=== PATIENT | female | born 1940 | race Caucasian/White ===

== ENCOUNTER → 2018-02-05 11:12 | Outpatient (CLI) | payer MEDICARE, OTHER ==
[~2018-02-05 11:12] MED LIST: CARDURA2 MG PO; CELEXA10 MG PO; HCTZ25 MG PO; KLOR-CON M2020 MEQ PO; LASIX40 MG PO; MIRAPEX1 MG PO; MOBIC7.5 MG PO; OMEPRAZOLE20 M1 PO; PREMARIN45 GM VG; TENORMIN50 MG PO
== END | disposition home or self-care (01) ==
LOC: D.US 11:12
DX: R60.0 Localized edema (principal)

== ENCOUNTER 2018-02-08 21:26 | Emergency (ER) | payer MEDICARE, OTHER ==
[~2018-02-08] VITALS: Ht 170.2 cm; Wt 72.7 kg
[2018-02-08 21:29] VITALS: Ht 170.2 cm; Wt 72.7 kg
[2018-02-08] MEDS ORDERED: CELEXA10 MG PO (23:30)
[2018-02-08] MEDS ORDERED: TENORMIN50 MG PO (23:32)
[2018-02-08] MEDS ORDERED: OMEPRAZOLE20 M1 PO (23:32)
[2018-02-08] MEDS ORDERED: HCTZ25 MG PO (23:33)
[2018-02-08] MEDS ORDERED: KLOR-CON M2020 MEQ PO (23:34)
[2018-02-08] MEDS ORDERED: LASIX40 MG PO (23:35)
[2018-02-08] MEDS ORDERED: MOBIC7.5 MG PO (23:35)
[2018-02-09 01:20] VITALS: BP 118/53
[2018-04-03 17:24] VITALS: Ht 170.2 cm; Wt 72.7 kg
== END 2018-02-09 01:22 | disposition home or self-care (01) ==
LOC: D.ER 21:26
DX: S09.90XA Unspecified injury of head, initial encounter (principal); W19.XXXA Unspecified fall, initial encounter; Y93.89 Activity, other specified; Y92.019 Unspecified place in single-family (private) house as the place of occurrence of the external cause; I10 Essential (primary) hypertension

== ENCOUNTER 2018-02-24 18:24 | Inpatient (IN) | payer MEDICARE, OTHER ==
[~2018-02-24] VITALS: Ht 170.2 cm; Wt 74.5 kg
--- NOTE | ~2018-02-24 | EC ---
PATIENT:JOANIE ALMODOVAR DATE OF SERVICE: 02/24/18 SEX: F MEDICAL RECORD: [id number] DATE OF : 36 LOCATION:D.M2 D.213 AGE OF PATIENT: 78 ADMISSION DATE: 02/24/18 REFERRING PHYSICIAN: INTERPRETING PHYSICIAN: DAKOTA ALAN MD ECHOCARDIOGRAM REPORT ECHO CHARGES 4 ECHO COMPLETE Date: 02/25 CLINICAL DIAGNOSIS: EDEMA ECHOCARDIOGRAPHIC MEASUREMENTS (adult normal given) AC root (d.<3.7cm) 2.7 cm LV Septum d (<1.2 cm> 1.5 cm Valve Excursion 1.6 cm LV Septum (systole) 1.9 cm Left Atria (s.<4.0cm> 4.7 cm LVPW d(<1.2cm) 1.5 cm RV (d.<2.3cm) 2.6 cm LVPW (sytole) 2.0 cm LV diastole(<5.6CM) 5.3 cm MV E-F(>70mm/sec) cm LV systole 2.7 cm LVOT Diameter 2.1 cm MV exc.(>10mm) cm Est.ejection fraction (50-75%) % DOPPLER: LVIT cm/sec A 79.0 cm/sec E 90.0 cm/sec LA cm/sec RVSP 34.2 mmHg LVOT 102 cm/sec AOP1/2T m/s Asc. Ao 186 cm/sec RVOT 74.0 cm/sec RA cm/sec PA 127 cm/sec AV Gradient Peak 14.0 mmHg AV Mean 6.8 mmHg AV Area 2.1 cm MV Gradient Peak 5.4 mmHg MV Mean 1.9 mmHg MV Area cm COMMENTS: On Site Manager: Raheel FRAGOSOOE Circus Agent: 1 Dr. Alan TAPE# PACS Pericardial Effusion N DATE OF SERVICE: 02/26/2018 PROCEDURE: Echocardiogram FINDINGS: 1. Left ventricular chamber size is within normal limits. Left ventricular systolic function is normal. Overall ejection fraction estimated at 55%. 2. Left atrium is enlarged at 4.7 cm. Right atrium and right ventricle chamber sizes as well are within normal limits. 3. Valvular structures have normal structure and motion. ECHOCARDIOGRAM REPORT [id number] JOANIE ALMODOVAR 4. Doppler interrogation reveals moderate mitral regurgitation, mild tricuspid regurgitation, no other valvular insufficiency or stenosis and pulmonary systolic pressure is estimated 34 mmHg. 5. No evidence of pericardial effusion or left ventricular thrombus. TRANSINT:[id number] Voice Confirmation ID: [id number] DOCUMENT ID: [id number] DAKOTA ALAN MD at 1713 CC: [id number] DICTATION DATE: 02/26/18 1234 PRODUCT MANUFACTURING PROFESSIONAL: 02/26/18 1239 ADM IN [facility] [address] [id number]
--- NOTE | ~2018-02-24 | MORECARE ---
CASE MANAGEMENT DISCHARGE SUMMARY PATIENT: JOANIE ALMODOVAR UNIT: [id number] ADM DATE: 02/24/18 AGE: 78 : 38 SEX: F ROOM/BED: D.2137 AUTHOR: CASE, OPEN SOAPER TENDER PHYSICIAN: REFERRING PHYSICIAN: MAHENDRA CRUZ DO DATE OF SERVICE: 02/24/18 Discharge Plan Patient Name: JOANIE ALMODOVAR Facility: [facility] : 1940 Planned Disposition: Long-Term Facility Anticipated Discharge Date: 02/27/18 Discharge Date: Expected LOS: 3 Initial Reviewer: [email or web address] Initial Review Date: 02/26/2018 Generated: 02/26/18 6:39 pm DCPIA - Discharge Planning Initial Assessment Updated by [email or web address]: Sam Espinoza on 02/26/18 5:38 pm * Is the patient Alert and Oriented? Yes * How many steps to enterexit or inside your home? * PCP DR. RICO * Pharmacy [facility] * Preadmission Environment Home Alone * ADLs Independent * Equipment Cane Walker * Other Equipment NO MEDICAL EQUIPMENT PROVIDER PREFERENCE * List name and contact numbers for known caregivers / representatives who currently or will assist patient after discharge: DONNA ALMODOVAR, SON, EDEN PRADO, * Verbal permission to speak to the caregivers and representatives has been obtained from the patient. Yes * Community resources currently utilized None * Please name any agencies selected above. NONE * Additional services required to return to the preadmission environment? Yes * Can the patient safely return to the preadmission environment? Yes * Has this patient been hospitalized within the prior 30 days at any hospital? No External Providers External Provider: [facility] Next Contact Date: 02/27/2018 Service Request Date: Service Type: Resolution: Reviewer: Comments: Coverage Notice Reviewer: [email or web address] Karrie Espinoza Notice Issued Date-Time: 02/26/2018 14:17 Notice Type: IM Discharge Notice Notice Delivered To: Patient Relationship to Patient: Laboratory Animal Caretaker Name: Delivery Method: HAND - Hand Delivered Ysabel Days: Prior Verbal Notification: Recipient Understood Notice: Yes Recipient Signature: Yes Med Rec Note Co-signed by Attending: Coverage Notice Comment: Reviewer: [email or web address] Vargas [place] Notice Issued Date-Time: 02/26/2018 16:30 Notice Type: Patient Choice Letter Notice Delivered To: Family Member Relationship to Patient: Son Laboratory Animal Caretaker Name: DONNA ALMODOVAR Delivery Method: - Ysabel Days: Prior Verbal Notification: Recipient Understood Notice: Recipient Signature: Med Rec Note Co-signed by Attending: Coverage Notice Comment: Patient Name: JOANIE ALMODOVAR Page [phone] All edits/amendments must be made on the electronic document DICTATION DATE: 02/26/181737 TOP DYEING MACHINE LOADER: 02/26/181737 RPT#: [id number] DC DATE: STATUS: ADM IN [facility] [address] [place] [address] END OF REPORT
--- NOTE | ~2018-02-24 | OP ---
PATIENT NAME: JOANIE ALMODOVAR MEDICAL RECORD: [id number] :36 LOCATION:D.M2 D.2137 ADMISSION DATE:02/24/18 SURGEON: CHIKIS HUYNH MD DATE OF OPERATION: 03/04/2018 PREOPERATIVE DIAGNOSIS: Procidentia. POSTOPERATIVE DIAGNOSIS: Procidentia. PROCEDURE: 1. Exam under anesthesia. 2. Reduction of procidentia and placement of pessary. SURGEON: Chikis Huynh MD CYBER INCIDENT RESPONDER: Kay Ware. ANESTHESIA: Conscious sedation. FINDINGS: Complete procidentia of the uterus. The urethra was edematous and shows evidence of trauma. SPECIMEN: None. ESTIMATED BLOOD LOSS: None. FLUIDS: 250 cc of lactated Ringer's. URINE OUTPUT: Quantity sufficient. DRAINS: Caceres to gravity. INDICATIONS: The patient is an 78-year-old female seen on the floor for procidentia. Attempt was made to reduce prolapse in the bed and was too uncomfortable for the patient. The patient was consented for exam under anesthesia and any indicated procedure. DESCRIPTION OF PROCEDURE: After informed consent was assured, patient was taken to the operating room where anesthetic was obtained and she was placed in Yellofin stirrups. After positioning, the exposed vaginal mucosa and urethra was prepped. Once the patient has been draped, stitch bonder machine operator helper grasped the cervix anteriorly and posteriorly and gently applied pressure until the complete procidentia was reduced. A 2-1/2 inch Gellhorn is now placed and maintained integrity of the reduction. The sponge, lap, and needle counts correct on the table as the patient was awakened and sent to the recovery area. TRANSINT:[id number] Voice Confirmation ID: [id number] DOCUMENT ID: [id number] OPERATIVE REPORT [id number] JOANIE ALMODOVAR CHIKIS HUYNH MD at 1431 CC: [id number] DICTATION DATE: 03/04/18 0745 INSULATION WORKER FURNACE INSTALLER: 03/04/18 1118 ADM IN [place] [place] [address] [place] [address]
[~2018-02-24 18:24] MED LIST changes: -CARDURA2 MG PO; -MIRAPEX1 MG PO; -PREMARIN45 GM VG
[2018-02-24 18:55] LABS: BASOPHILS 0.5 % (0-2); HEMATOCRIT 34.7 % (36.0-48.0); HEMOGLOBIN 11.5 g/dL (12-16); IMMATURE GRANULOCYTES 0.3 % (0-5); MCH 32.4 pg (26.0-34.0); MCHC 33.1 g/dL (31.0-37.0); MCV 97.7 fL (80.0-100.0); MEAN PLATELET VOLUME 9.8 fL (7.4-10.4); MONOCYTES 14.2 % (2-11); PLATELET COUNT 107 10x3/uL (130-400); RBC 3.55 10x6/uL (4.00-5.40); RDW 15.7 % (11.5-14.5); WBC 3.7 10x3/uL (4.8-10.8)
[2018-02-24 19:08] LABS: ALBUMIN 2.9 g/dL (3.4-5.0); ALKALINE PHOSPHATASE 159 U/L (46-116); ALT (SGPT) 19 U/L (10-68); BILIRUBIN - TOTAL 1.31 mg/dL (0.2-1.3); CALC OSMOLALITY 274 mosm/kg (275-300); CALCIUM 8.8 mg/dL (8.5-10.1); CARBON DIOXIDE 29.7 mmol/L (21.0-32.0); CHLORIDE - SERUM 105 mmol/L (98-107); CREATININE - SERUM 0.6 mg/dL (0.6-1.3); GLUCOSE 86 mg/dL (74-106); POTASSIUM - SERUM 3.2 mmol/L (3.5-5.1); PROTEIN - SERUM 7.4 g/dL (6.4-8.2); SODIUM 138 mmol/L (136-145); UREA NITROGEN 12 mg/dL (7-18); eGFR NON AFRICAN AMERICAN > 90 mL/min (90-120)
[2018-02-24 19:17] LABS: PRO BNP 603 pg/mL (0-450)
[2018-02-24 19:20] LABS: TROPONIN-I < 0.017 ng/mL (0.000-0.060)
[2018-02-25] VITALS (8 sets, daily range): BP systolic 103–162; BP diastolic 35–73; Ht 170.2 cm; Wt 74.5 kg
[2018-02-25 04:43] LABS: ALBUMIN 2.6 g/dL (3.4-5.0); ALKALINE PHOSPHATASE 150 U/L (46-116); ALT (SGPT) 19 U/L (10-68); BILIRUBIN - TOTAL 1.34 mg/dL (0.2-1.3); CALC OSMOLALITY 275 mosm/kg (275-300); CALCIUM 8.7 mg/dL (8.5-10.1); CARBON DIOXIDE 28.9 mmol/L (21.0-32.0); CHLORIDE - SERUM 104 mmol/L (98-107); CREATININE - SERUM 0.6 mg/dL (0.6-1.3); GLUCOSE 87 mg/dL (74-106); POTASSIUM - SERUM 3.3 mmol/L (3.5-5.1); PROTEIN - SERUM 6.8 g/dL (6.4-8.2); SODIUM 139 mmol/L (136-145); UREA NITROGEN 11 mg/dL (7-18); eGFR NON AFRICAN AMERICAN > 90 mL/min (90-120)
[2018-02-25 05:02] LABS: BASOPHILS 0.5 % (0-2); EOSINOPHILS 1.9 % (0-7); HEMATOCRIT 33.9 % (36.0-48.0); HEMOGLOBIN 11.3 g/dL (12-16); IMMATURE GRANULOCYTES 0.3 % (0-5); LYMPHOCYTES 15.6 % (15-50); MCH 32.3 pg (26.0-34.0); MCHC 33.3 g/dL (31.0-37.0); MCV 96.9 fL (80.0-100.0); MONOCYTES 15.6 % (2-11); NEUTROPHILS 66.1 % (40-80); PLATELET COUNT 104 10x3/uL (130-400); RDW 15.5 % (11.5-14.5); WBC 3.7 10x3/uL (4.8-10.8)
[2018-02-25 10:54] LABS: APPEARANCE SL CLDY (CLEAR); COLOR YELLOW (YELLOW); GLUCOSE NEGATIVE (NEGATIVE); NITRITE NEGATIVE (NEGATIVE); PROTEIN TRACE mg/dL (NEGATIVE); SPECIFIC GRAVITY 1.005 (1.005-1.020)
[2018-02-25 10:55] LABS: BACTERIA MODERATE /hpf (NONE SEEN); BILIRUBIN NEGATIVE (NEGATIVE); EPITHELIAL CELLS 0-5 /hpf (0-5); KETONE MODERATE mg/dL (NEGATIVE); WHITE CELLS - URINE 25-50 /hpf (0-5)
[2018-02-25 10:56] LABS: MUCUS <1+ /lpf (NONE SEEN)
[2018-02-26 04:18] LABS: BASOPHILS 0.7 % (0-2); EOSINOPHILS 3.7 % (0-7); HEMATOCRIT 33.1 % (36.0-48.0); HEMOGLOBIN 10.9 g/dL (12-16); IMMATURE GRANULOCYTES 0.2 % (0-5); LYMPHOCYTES 22.9 % (15-50); MCHC 32.9 g/dL (31.0-37.0); MCV 97.1 fL (80.0-100.0); MEAN PLATELET VOLUME 9.8 fL (7.4-10.4); NEUTROPHILS 50.5 % (40-80); PLATELET COUNT 123 10x3/uL (130-400); RBC 3.41 10x6/uL (4.00-5.40); RDW 15.5 % (11.5-14.5); WBC 4.4 10x3/uL (4.8-10.8)
[2018-02-26 04:34] LABS: ALBUMIN 2.4 g/dL (3.4-5.0); ALKALINE PHOSPHATASE 145 U/L (46-116); ALT (SGPT) 17 U/L (10-68); BILIRUBIN - TOTAL 0.82 mg/dL (0.2-1.3); CALC OSMOLALITY 275 mosm/kg (275-300); CALCIUM 8.2 mg/dL (8.5-10.1); CARBON DIOXIDE 32.8 mmol/L (21.0-32.0); CHLORIDE - SERUM 103 mmol/L (98-107); CREATININE - SERUM 0.7 mg/dL (0.6-1.3); GLUCOSE 111 mg/dL (74-106); POTASSIUM - SERUM 3.2 mmol/L (3.5-5.1); PROTEIN - SERUM 6.5 g/dL (6.4-8.2); SODIUM 137 mmol/L (136-145); eGFR NON AFRICAN AMERICAN 85 mL/min (90-120)
[2018-02-26 04:37] LABS: UREA NITROGEN 16 mg/dL (7-18)
[2018-02-26 05:49] VITALS: BP 128/48
[2018-02-26 09:51] VITALS: BP 137/70
[2018-02-26] MEDS ORDERED: MIRAPEX1 MG PO (12:10)
[2018-02-26] MEDS ORDERED: CARDURA2 MG PO (12:10)
[2018-02-26 18:35] VITALS: BP 116/60
[2018-02-26 18:46] VITALS: BP 120/66
[2018-02-26 20:33] VITALS: BP 130/56
[2018-02-27] VITALS: BP 119/56
[2018-02-27 05:36] VITALS: BP 110/45
[2018-02-27 08:05] LABS: ALBUMIN 2.2 g/dL (3.4-5.0); ANION GAP 4.1 mmol/L (8-16); BILIRUBIN - TOTAL 1.01 mg/dL (0.2-1.3); CALCIUM 8.1 mg/dL (8.5-10.1); CARBON DIOXIDE 35.4 mmol/L (21.0-32.0); POTASSIUM - SERUM 3.5 mmol/L (3.5-5.1); PROTEIN - SERUM 6.2 g/dL (6.4-8.2)
[2018-02-27 08:19] VITALS: BP 107/36
[2018-02-27 11:23] VITALS: BP 105/40
[2018-02-27 16:16] VITALS: BP 118/48
[2018-02-27 20:02] VITALS: BP 138/48
[2018-02-28 00:24] VITALS: BP 118/56
[2018-02-28 06:13] VITALS: BP 108/49
[2018-02-28 08:09] VITALS: BP 126/57
[2018-02-28 12:05] VITALS: BP 118/47
[2018-02-28 15:01] VITALS: BP 132/73
[2018-02-28 20:30] VITALS: BP 109/72
[2018-03-01 08:55] VITALS: BP 140/57
[2018-03-01 13:25] VITALS: BP 133/55
[2018-03-01 16:11] VITALS: BP 135/56
[2018-03-01 21:54] VITALS: BP 118/44
[2018-03-02 02:13] VITALS: BP 138/67
[2018-03-02 05:26] VITALS: BP 142/58
[2018-03-02 05:39] LABS: BASOPHILS 0.6 % (0-2); EOSINOPHILS 4.8 % (0-7); HEMATOCRIT 35.7 % (36.0-48.0); HEMOGLOBIN 11.8 g/dL (12-16); IMMATURE GRANULOCYTES 0.2 % (0-5); LYMPHOCYTES 16.9 % (15-50); MCH 32.4 pg (26.0-34.0); MCHC 33.1 g/dL (31.0-37.0); MCV 98.1 fL (80.0-100.0); MEAN PLATELET VOLUME 9.9 fL (7.4-10.4); MONOCYTES 12.4 % (2-11); NEUTROPHILS 65.1 % (40-80); PLATELET COUNT 121 10x3/uL (130-400); RBC 3.64 10x6/uL (4.00-5.40); RDW 15.4 % (11.5-14.5); WBC 5.3 10x3/uL (4.8-10.8)
[2018-03-02 06:03] LABS: ANION GAP 7.3 mmol/L (8-16); CALCIUM 8.6 mg/dL (8.5-10.1); CARBON DIOXIDE 32.4 mmol/L (21.0-32.0); CREATININE - SERUM 0.8 mg/dL (0.6-1.3); POTASSIUM - SERUM 3.7 mmol/L (3.5-5.1)
[2018-03-02 10:10] VITALS: BP 136/58
[2018-03-02 20:05] VITALS: BP 131/55
[2018-03-03 05:17] VITALS: BP 149/73
[2018-03-03 08:17] VITALS: BP 122/43
[2018-03-03 12:05] VITALS: BP 120/60
[2018-03-03 16:45] VITALS: BP 134/62
[2018-03-03 20:00] VITALS: BP 126/45
[2018-03-04] VITALS: BP 132/57
[2018-03-04 04:00] VITALS: BP 136/60
[2018-03-04 12:22] VITALS: BP 139/63
[2018-03-04 16:30] VITALS: BP 112/47
[2018-03-04] MEDS ORDERED: PREMARIN45 GM VG (16:43)
[2018-03-04 20:00] VITALS: BP 112/42
[2018-03-05 06:11] VITALS: BP 142/60
[2018-03-05 08:52] VITALS: BP 137/75
[2018-03-05 12:00] VITALS: BP 136/60
== END 2018-03-05 15:32 | DRG 884 ==
LOC: D.ER 18:24 → D.EDHOLD 21:43 → D.M2 21:43
PROVIDERS: Family Medicine; Obstetrics & Gynecology
PROC: 0UHG7GZ Insertion of Pessary into Vagina, Via Natural or Artificial Opening (ICD-10-PCS; principal; 2018-03-04 07:00)
DX: R54 Age-related physical debility (principal); R60.0 Localized edema; E87.6 Hypokalemia; E88.09 Other disorders of plasma-protein metabolism, not elsewhere classified; I10 Essential (primary) hypertension; N81.3 Complete uterovaginal prolapse

== ENCOUNTER 2018-04-03 17:16 | Emergency (ER) | payer MEDICARE, OTHER ==
[~2018-04-03 17:16] MED LIST changes: +CARDURA2 MG PO; +MIRAPEX1 MG PO; +PREMARIN45 GM VG
[2018-04-03 17:24] VITALS: Ht 170.2 cm
[2018-04-03 18:38] LABS: APTT 33.7 SECONDS (22.8-39.4); INR 1.3 (0.85-1.17); PROTIME 15.7 SECONDS (11.6-15.0)
[2018-04-03 18:50] LABS: HEMATOCRIT 35.1 % (36.0-48.0); HEMOGLOBIN 11.7 g/dL (12-16); MCH 32.8 pg (26.0-34.0); MCHC 33.3 g/dL (31.0-37.0); MCV 98.3 fL (80.0-100.0); PLATELET COUNT 89 10x3/uL (130-400); RBC 3.57 10x6/uL (4.00-5.40); RDW 16.3 % (11.5-14.5); WBC 4.2 10x3/uL (4.8-10.8)
[2018-04-03 18:51] LABS: MEAN PLATELET VOLUME 10.7 fL (7.4-10.4)
[2018-04-03 18:54] LABS: BASOPHILS 0.7 % (0-2); EOSINOPHILS 6.3 % (0-7); LYMPHOCYTES 38.5 % (15-50); NEUTROPHILS 44.4 % (40-80)
[2018-04-03 19:12] LABS: CALC OSMOLALITY 276 mosm/kg (275-300); CALCIUM 8.4 mg/dL (8.5-10.1); CARBON DIOXIDE 32.4 mmol/L (21.0-32.0); CHLORIDE - SERUM 102 mmol/L (98-107); GLUCOSE 98 mg/dL (74-106); POTASSIUM - SERUM 3.6 mmol/L (3.5-5.1); SODIUM 137 mmol/L (136-145); UREA NITROGEN 22 mg/dL (7-18)
[2018-04-03 19:13] LABS: ALBUMIN 2.8 g/dL (3.4-5.0); ALKALINE PHOSPHATASE 136 U/L (46-116); ALT (SGPT) 24 U/L (10-68); BILIRUBIN - TOTAL 1.08 mg/dL (0.2-1.3); PROTEIN - SERUM 7.2 g/dL (6.4-8.2)
[2018-04-03 19:39] VITALS: BP 111/52
[2018-04-03 19:52] LABS: PLATELET ESTIMATE DECREASED
== END 2018-04-03 20:21 | disposition home or self-care (01) ==
LOC: D.ER 17:16
PROVIDERS: Family Medicine
DX: I87.2 Venous insufficiency (chronic) (peripheral) (principal); D69.6 Thrombocytopenia, unspecified; I10 Essential (primary) hypertension; K21.9 Gastro-esophageal reflux disease without esophagitis

== ENCOUNTER 2018-07-08 16:37 | Inpatient (IN) | payer MEDICARE, OTHER ==
[~2018-07-08] VITALS: Ht 170.2 cm; Wt 70.8 kg
--- NOTE | ~2018-07-08 | MORECARE ---
CASE MANAGEMENT DISCHARGE SUMMARY PATIENT: JOANIE BONILLA UNIT: [id number] ADM DATE: 07/08/18 AGE: 78 : 38 SEX: F ROOM/BED: D.2223 AUTHOR: WUDOC PHYSICIAN: REFERRING PHYSICIAN: LISA RICO DO DATE OF SERVICE: 07/09/18 Discharge Plan Patient Name: JOANIE BONILLA Facility: [facility]:[place] : 1940 Planned Disposition: Inpatient Rehab Facility Anticipated Discharge Date: Discharge Date: Expected LOS: Initial Reviewer: [email or web address] Initial Review Date: 07/09/2018 Generated: 07/09/18 4:07 pm Comments DCP- Discharge Planning Updated by [email or web address]: Pam Echavarria on 07/09/18 1:[address] Patient Name: JOANIE BONILLA Admission Status: Urgent Accout number: [id number] Admission Date: 07-08-2018 : 1940 Admission Diagnosis: Attending: LISA RICO Current LOS: 1 Anticipated DC Date: Planned Disposition: Inpatient Rehab Facility Primary Insurance: MEDICARE A & B Discharge Planning Comments: CM met with patient to discuss discharge planning, her son is in the room. Her son, Cheng, is her POA. States she has been living with him. States she needs rehab. They would like her to go to inpatient rehab at [facility]. He said she has stayed 100 days at [facility] and was discharged about 45 days ago. I explained to them that Medicare and a secondary will only pay for 100 days and she would need to have 60 well days (no hospitalization) before the 100 days of skilled days start over. I did call Michelle with [facility] to see if she has any skilled days available. Rehab screen ordered. CM will continue to follow and assist with discharge planning/needs. Dinking Machine Operator: Pam Echavarria DCPIA - Discharge Planning Initial Assessment Updated by [email or web address]: Pam Echavarria on 07/09/18 2:44 pm * Is the patient Alert and Oriented? Yes * How many steps to enter\exit or inside your home? 2-3/0 * PCP Dr. Rico * Pharmacy [facility] [address] * Preadmission Environment Home with Family * ADLs Partial Dependent * Partial ADLs (Assistance needed) Ambulation * Equipment Walker * List name and contact numbers for known caregivers / representatives who currently or will assist patient after discharge: Cheng Bonilla - son (POA) - [phone] Mike Bonilla - grand son - [phone] * Verbal permission to speak to the caregivers and representatives has been obtained from the patient. Yes * Community resources currently utilized None * Additional services required to return to the preadmission environment? Yes * Can the patient safely return to the preadmission environment? No * Has this patient been hospitalized within the prior 30 days at any hospital? No External Providers External Provider: [facility] Next Contact Date: Service Request Date: Service Type: Resolution: Reviewer: Comments: Last DP export: 07/09/18 1:50 Patient Name: JOANIE BONILLA Page [phone] at 1507 All edits/amendments must be made on the electronic document DICTATION DATE: 07/09/181506 FLUMER: HERNANDEZ 07/09/18 1507 RPT#: [id number] DC DATE: STATUS: ADM IN [facility] [address] [place] [address] END OF REPORT
--- NOTE | ~2018-07-08 | MORECARE ---
CASE MANAGEMENT DISCHARGE SUMMARY PATIENT: JOANIE BONILLA UNIT: [id number] ADM DATE: 07/08/18 AGE: 78 : 38 SEX: F ROOM/BED: D.2223 AUTHOR: WU,DOC PHYSICIAN: REFERRING PHYSICIAN: LISA RICO DO DATE OF SERVICE: 07/13/18 Discharge Plan Patient Name: JOANIE BONILLA Facility: [facility]:[place] : 1940 Planned Disposition: Inpatient Rehab Facility Anticipated Discharge Date: Discharge Date: Expected LOS: Initial Reviewer: [email or web address] Initial Review Date: 07/09/2018 Generated: 07/13/18 1:12 pm Comments DCP- Discharge Planning Updated by [email or web address]: Pam Jericho on 07/13/18 11:[address] Received notification from Maura that she is being accepted to [facility] inpatient rehab today. Patient and son in room and notified. I notified Horacio (Dr. Rosen's RESIDENT CARE ASSOCIATE) and she will write DC orders. Clinical/DC order faxed to [facility]. They will provide transportation. CM will continue to follow and assist with discharge planning/needs. DCP- Discharge Planning Updated by [email or web address]: Pam Echavarria on 07/10/18 1:43 pm [facility] states they do not have a bed until next week, Maura states she will notify the field nurse case manager this weekend if that changes. I spoke with Lorraine at [facility] inpatient rehab and she states she reviewed her chart again and are not taking her. I spoke with her son, Cheng, he does not agree with a discharge home with home health and would like to see if [facility] will take her next week. I also spoke to Cheng again about having a back up plan if he did not think that he could take her home from rehab such as shelter care. CM will continue to follow and assist with discharge planning/needs. DCP- Discharge Planning Updated by [email or web address]: Pam Jericho on 07/10/18 10:[address] Received a call from Michelle Sanchez, patient has used all 100 skilled days at [facility] (admitted 03/05 and discharged 06/13). I also received notification from Lorraine that she does not qualify for inpatient rehab here at [facility]. I spoke with the patient, she is alone in the room. She states she feels she can return home with her son with home health, but I can call her son and ask him. She states she does not want to go to shelter care. I called her son, Cheng, and informed him of the options of private paying skilled therapy, home with home health, shelter placement (applying for shelter Medicaid), or another inpatient rehab facility. He would like a referral to [facility]. I called [facility] and spoke to bon Kline faxed. CM will continue to follow and assist with discharge planning/needs. DCP- Discharge Planning Updated by [email or web address]: Pam Echavarria on 07/09/18 1:[address] Patient Name: JOANIE BONILLA Admission Status: Urgent Accout number: [id number] Admission Date: 07-08-2018 : 1940 Admission Diagnosis: Attending: LISA RICO Current LOS: 1 Anticipated DC Date: Planned Disposition: Inpatient Rehab Facility Primary Insurance: MEDICARE A & B Discharge Planning Comments: CM met with patient to discuss discharge planning, her son is in the room. Her son, Cheng, is her POA. States she has been living with him. States she needs rehab. They would like her to go to inpatient rehab at [facility]. He said she has stayed 100 days at [facility] and was discharged about 45 days ago. I explained to them that Medicare and a secondary will only pay for 100 days and she would need to have 60 well days (no hospitalization) before the 100 days of skilled days start over. I did call Michelle with [facility] to see if she has any skilled days available. Rehab screen ordered. CM will continue to follow and assist with discharge planning/needs. Automotive Service Technician: Pam Echavarria DCPIA - Discharge Planning Initial Assessment Updated by [email or web address]: Pam Echavarria on 07/09/18 2:44 pm * Is the patient Alert and Oriented? Yes * How many steps to enter\exit or inside your home? 2-3/0 * PCP Dr. Rico * Pharmacy [facility] [address] * Preadmission Environment Home with Family * ADLs Partial Dependent * Partial ADLs (Assistance needed) Ambulation * Equipment Walker * List name and contact numbers for known caregivers / representatives who currently or will assist patient after discharge: Cheng Bonilla - son (POA) - [phone] Mike Bonilla - grand son - [phone] * Verbal permission to speak to the caregivers and representatives has been obtained from the patient. Yes * Community resources currently utilized None * Additional services required to return to the preadmission environment? Yes * Can the patient safely return to the preadmission environment? No * Has this patient been hospitalized within the prior 30 days at any hospital? No Coverage Notice Reviewer: [email or web address] Karrie Echavarria Notice Issued Date-Time: 07/13/2018 12:04 Notice Type: IM Discharge Notice Notice Delivered To: Family Member Relationship to Patient: Son Class A Regional Drivers Name: Cheng Bonilla Delivery Method: HAND - Hand Delivered Ysabel Days: Prior Verbal Notification: Recipient Understood Notice: Yes Recipient Signature: Yes Med Rec Note Co-signed by Attending: Coverage Notice Comment: IMM explained, signed, copy given, original placed in MR Last DP export: 07/10/18 1:47 Patient Name: JOANIE BONILLA Page [id number] at 1212 All edits/amendments must be made on the electronic document DICTATION DATE: 07/13/18 1211 SAIL REPAIR PERSON: HERNANDEZ 07/13/18 1211 RPT#: [id number] DC DATE: STATUS: ADM IN [facility] [address] [place] [address] END OF REPORT
--- NOTE | ~2018-07-08 | MORECARE ---
CASE MANAGEMENT DISCHARGE SUMMARY PATIENT: JOANIE BONILLA UNIT: [id number] ADM DATE: 07/08/18 AGE: 78 : 38 SEX: F ROOM/BED: D.2223 AUTHOR: SRAVANI WASHBURN PHYSICIAN: REFERRING PHYSICIAN: LISA RICO DO DATE OF SERVICE: 07/10/18 Discharge Plan Patient Name: JOANIE BONILLA Facility: [facility]:[place] : 1940 Planned Disposition: Inpatient Rehab Facility Anticipated Discharge Date: Discharge Date: Expected LOS: Initial Reviewer: [email or web address] Initial Review Date: 07/09/2018 Generated: 07/10/18 12:36 pm Comments DCP- Discharge Planning Updated by [email or web address]: Pam Echavarria on 07/10/18 10:[address] Received a call from Michelle Sanchez, patient has used all 100 skilled days at [facility] (admitted 03/05 and discharged 06/13). I also received notification from Lorraine that she does not qualify for inpatient rehab here at [facility]. I spoke with the patient, she is alone in the room. She states she feels she can return home with her son with home health, but I can call her son and ask him. She states she does not want to go to half-way care. I called her son, Cheng, and informed him of the options of private paying skilled therapy, home with home health, half-way placement (applying for half-way Medicaid), or another inpatient rehab facility. He would like a referral to [facility]. I called [facility] and spoke to bon Kline faxmarci. CM will continue to follow and assist with discharge planning/needs. DCP- Discharge Planning Updated by [email or web address]: Pam Echavarria on 07/09/18 1:[address] Patient Name: JOANIE BONILLA Admission Status: Urgent Accout number: [id number] Admission Date: 07-08-2018 : 1940 Admission Diagnosis: Attending: LISA RICO Current LOS: 1 Anticipated DC Date: Planned Disposition: Inpatient Rehab Facility Primary Insurance: MEDICARE A & B Discharge Planning Comments: CM met with patient to discuss discharge planning, her son is in the room. Her son, Cheng, is her POA. States she has been living with him. States she needs rehab. They would like her to go to inpatient rehab at [facility]. He said she has stayed 100 days at [facility] and was discharged about 45 days ago. I explained to them that Medicare and a secondary will only pay for 100 days and she would need to have 60 well days (no hospitalization) before the 100 days of skilled days start over. I did call Michelle with [facility] to see if she has any skilled days available. Rehab screen ordered. CM will continue to follow and assist with discharge planning/needs. Automotive Painter Helper: Pam Echavarria DCPIA - Discharge Planning Initial Assessment Updated by [email or web address]: Pam Echavarria on 07/09/18 2:44 pm * Is the patient Alert and Oriented? Yes * How many steps to enter\exit or inside your home? 2-30 * PCP Dr. Rico * Pharmacy [facility] on [address] * Preadmission Environment Home with Family * ADLs Partial Dependent * Partial ADLs (Assistance needed) Ambulation * Equipment Walker * List name and contact numbers for known caregivers / representatives who currently or will assist patient after discharge: Cheng Bonilla - son (POA) - [phone] Mike Bonilla - grand son - [phone] * Verbal permission to speak to the caregivers and representatives has been obtained from the patient. Yes * Community resources currently utilized None * Additional services required to return to the preadmission environment? Yes * Can the patient safely return to the preadmission environment? No * Has this patient been hospitalized within the prior 30 days at any hospital? No External Providers External Provider: [facility] Next Contact Date: Service Request Date: Service Type: Resolution: Reviewer: Comments: Last DP export: 07/09/18 2:07 Patient Name: JOANIE BONILLA Page [phone] at 1136 All edits/amendments must be made on the electronic document DICTATION DATE: 07/10/18 1136 SHELL FREEZING MACHINE OPERATOR: HERNANDEZ 07/10/181135 RPT#: [id number] UT DATE: STATUS: ADM IN [facility] [address] [place] [address] END OF REPORT
--- NOTE | ~2018-07-08 | MORECARE ---
CASE MANAGEMENT DISCHARGE SUMMARY PATIENT: JOANIE BONILLA UNIT: [id number] ADM DATE: 07/08/18 AGE: 78 : 38 SEX: F ROOM/BED: D.2223 AUTHOR: WU,DOC PHYSICIAN: REFERRING PHYSICIAN: LISA RICO DO DATE OF SERVICE: 07/10/18 Discharge Plan Patient Name: JOANIE BONILLA Facility: [facility]:[place] : 1940 Planned Disposition: Inpatient Rehab Facility Anticipated Discharge Date: Discharge Date: Expected LOS: Initial Reviewer: [email or web address] Initial Review Date: 07/09/2018 Generated: 07/10/18 3:47 pm Comments DCP- Discharge Planning Updated by [email or web address]: Pam Echavarria on 07/10/18 1:43 pm [facility] states they do not have a bed until next week, Maura states she will notify the supportive employment case manager this weekend if that changes. I spoke with Lorraine at [facility] inpatient rehab and she states she reviewed her chart again and are not taking her. I spoke with her son, Cheng, he does not agree with a discharge home with home health and would like to see if [facility] will take her next week. I also spoke to Cheng again about having a back up plan if he did not think that he could take her home from rehab such as intermediate care. CM will continue to follow and assist with discharge planning/needs. DCP- Discharge Planning Updated by [email or web address]: Pam Echavarria on 07/10/18 10:[address] Received a call from Michelle Sanchez, patient has used all 100 skilled days at [facility] (admitted 03/05 and discharged 06/13). I also received notification from Lorraine that she does not qualify for inpatient rehab here at [facility]. I spoke with the patient, she is alone in the room. She states she feels she can return home with her son with home health, but I can call her son and ask him. She states she does not want to go to integrated logistics support manager care. I called her son, Cheng, and informed him of the options of private paying skilled therapy, home with home health, intermediate placement (applying for intermediate Medicaid), or another inpatient rehab facility. [facility] I called [facility] and spoke to bon Kline faxmarci. CM will continue to follow and assist with discharge planning/needs. DCP- Discharge Planning Updated by [email or web address]: Pam Echavarria on 07/09/18 1:[address] Patient Name: JOANIE BONILLA Admission Status: Urgent Accout number: [id number] Admission Date: 07-08-2018 : 1940 Admission Diagnosis: Attending: LISA RICO Current LOS: 1 Anticipated DC Date: Planned Disposition: Inpatient Rehab Facility Primary Insurance: MEDICARE A & B Discharge Planning Comments: CM met with patient to discuss discharge planning, her son is in the room. Her son, Cheng, is her POA. States she has been living with him. States she needs rehab. They would like her to go to inpatient rehab at [facility]. He said she has stayed 100 days at [facility] and was discharged about 45 days ago. I explained to them that Medicare and a secondary will only pay for 100 days and she would need to have 60 well days (no hospitalization) before the 100 days of skilled days start over. I did call Michelle with [facility] to see if she has any skilled days available. Rehab screen ordered. CM will continue to follow and assist with discharge planning/needs. Yard Coupler: Pam Echavarria DCPIA - Discharge Planning Initial Assessment Updated by [email or web address]: Pam Echavarria on 07/09/18 2:44 pm * Is the patient Alert and Oriented? Yes * How many steps to enter\exit or inside your home? 2-3/0 * PCP Dr. Rico * Pharmacy [facility] [address] * Preadmission Environment Home with Family * ADLs Partial Dependent * Partial ADLs (Assistance needed) Ambulation * Equipment Walker * List name and contact numbers for known caregivers / representatives who currently or will assist patient after discharge: Cheng Bonilla - son (POA) - [phone] Mike Bonilla - grand son - [phone] * Verbal permission to speak to the caregivers and representatives has been obtained from the patient. Yes * Community resources currently utilized None * Additional services required to return to the preadmission environment? Yes * Can the patient safely return to the preadmission environment? No * Has this patient been hospitalized within the prior 30 days at any hospital? No Last DP export: 07/10/18 10:36 Patient Name: JOANIE BONILLA Page [id number] at 1447 All edits/amendments must be made on the electronic document DICTATION DATE: 07/10/181445 WOODWORKING CRAFTSMAN: HERNANDEZ 07/10/181445 RPT#: [id number] DC DATE: STATUS: ADM IN [facility] [address] [place] [address] END OF REPORT
--- NOTE | ~2018-07-08 | MORECARE ---
CASE MANAGEMENT DISCHARGE SUMMARY PATIENT: JOANIE BONILLA UNIT: [id number] ADM DATE: 07/08/18 AGE: 78 : 38 SEX: F ROOM/BED: D.2223 AUTHOR: SRAVANI WASHBURN PHYSICIAN: REFERRING PHYSICIAN: LISA RICO DO DATE OF SERVICE: 07/09/18 Discharge Plan Patient Name: JOANIE [facility]ONILLA [facility] [facility] 1940 Planned Disposition: Inpatient Rehab Facility Anticipated Discharge Date: Discharge Date: Expected LOS: Initial Reviewer: [email or web address] Initial Review Date: 07/09/2018 Generated: 07/09/18 3:50 pm DCPIA - Discharge Planning Initial Assessment Updated by [email or web address]: Pam Echavarria on 07/09/18 2:44 pm * Is the patient Alert and Oriented? Yes * How many steps to enter\exit or inside your home? 2-3/0 * PCP Dr. Rico * Pharmacy [facility] [address] * Preadmission Environment Home with Family * ADLs Partial Dependent * Partial ADLs (Assistance needed) Ambulation * Equipment Walker * List name and contact numbers for known caregivers / representatives who currently or will assist patient after discharge: Cheng Bonilla - son (POA) - [phone] Mike still son - [phone] * Verbal permission to speak to the caregivers and representatives has been obtained from the patient. Yes * Community resources currently utilized None * Additional services required to return to the preadmission environment? Yes * Can the patient safely return to the preadmission environment? No * Has this patient been hospitalized within the prior 30 days at any hospital? No Patient Name: JOANIE BONILLA Page [id number] at 1450 All edits/amendments must be made on the electronic document DICTATION DATE: 07/09/181448 KILN FURNITURE SAW TENDER: HERNANDEZ 07/09/181448 RPT#: [id number] DC DATE: STATUS: ADM IN [address] [place] [address] END OF REPORT
--- NOTE | ~2018-07-08 | MORECARE ---
CASE MANAGEMENT DISCHARGE SUMMARY PATIENT: JOANIE BONILLA UNIT: [id number] ADM DATE: 07/08/18 AGE: 78 : 38 SEX: F ROOM/BED: D.2223 AUTHOR: WU,DOC PHYSICIAN: REFERRING PHYSICIAN: LISA RICO DO DATE OF SERVICE: 07/14/18 Discharge Plan Patient Name: JOANIE BONILLA Facility: [facility]:[place] : 1940 Planned Disposition: Inpatient Rehab Facility Anticipated Discharge Date: Discharge Date: 07/13/2018 Expected LOS: 0 Initial Reviewer: [email or web address] Initial Review Date: 07/09/2018 Generated: 07/14/18 10:01 am Comments DCP- Discharge Planning Updated by [email or web address]: Pam Jericho on 07/13/18 11:[address] Received notification from Maura that [facility]. Patient and son in room and notified. I notified Horacio (Dr. Rosen's LICENSED REACTOR OPERATOR) and she will write DC orders. Clinical/DC order [facility]ed to [facility]. They will provide transportation. CM will continue to follow and assist with discharge planning/needs. DCP- Discharge Planning Updated by [email or web address]: Pam Jericho on 07/10/18 1:43 pm [facility] states they do not have a bed until next week, Maura states she will notify the case packer this weekend if that changes. I spoke with Lorraine at [facility] inpatient rehab and she states she reviewed her chart again and are not taking her. I spoke with her son, Cheng, he does not agree with a discharge home with home health and would like to see if [facility] will take her next week. I also spoke to Cheng again about having a back up plan if he did not think that he could take her home from rehab such as retirement care. CM will continue to follow and assist with discharge planning/needs. DCP- Discharge Planning Updated by [email or web address]: Pam Jericho on 07/10/18 10:[address] Received a call from iMchelle Sanchez, patient has used all 100 skilled days at [facility] (admitted 03/05 and discharged 06/13). I also received notification from Lorraine that she does not qualify for inpatient rehab here at [facility]. I spoke with the patient, she is alone in the room. She states she feels she can return home with her son with home health, but I can call her son and ask him. She states she does not want to go to oysterman care. I called her son, Cheng, and informed him of the options of private paying skilled therapy, home with home health, retirement placement (applying for retirement Medicaid), or another inpatient rehab facility. He would like a referral to [facility]. I called [facility] and spoke to bon Kline faxed. CM will continue to follow and assist with discharge planning/needs. DCP- Discharge Planning Updated by [email or web address]: Pam Echavarria on 07/09/18 1:[address] Patient Name: JOANIE BONILLA Admission Status: Urgent Accout number: [id number] Admission Date: 07-08-2018 : 1940 Admission Diagnosis: Attending: LISA RICO Current LOS: 1 Anticipated DC Date: Planned Disposition: Inpatient Rehab Facility Primary Insurance: MEDICARE A & B Discharge Planning Comments: CM met with patient to discuss discharge planning, her son is in the room. Her son, Cheng, is her POA. States she has been living with him. States she needs rehab. They would like her to go to inpatient rehab at [facility]. He said she has stayed 100 days at [facility] and was discharged about 45 days ago. I explained to them that Medicare and a secondary will only pay for 100 days and she would need to have 60 well days (no hospitalization) before the 100 days of skilled days start over. I did call Michelle with [facility] to see if she has any skilled days available. Rehab screen ordered. CM will continue to follow and assist with discharge planning/needs. Automation Lead: Pam Echavarria DCPIA - Discharge Planning Initial Assessment Updated by [email or web address]: Pam Echavarria on 07/09/18 2:44 pm * Is the patient Alert and Oriented? Yes * How many steps to enter\exit or inside your home? 2-3/0 * PCP Dr. Rico * Pharmacy [facility] [address] * Preadmission Environment Home with Family * ADLs Partial Dependent * Partial ADLs (Assistance needed) Ambulation * Equipment Walker * List name and contact numbers for known caregivers / representatives who currently or will assist patient after discharge: Cheng Bonilla - son (POA) - [phone] Mike Bonilla - grand son - [phone] * Verbal permission to speak to the caregivers and representatives has been obtained from the patient. Yes * Community resources currently utilized None * Additional services required to return to the preadmission environment? Yes * Can the patient safely return to the preadmission environment? No * Has this patient been hospitalized within the prior 30 days at any hospital? No Coverage Notice Reviewer: [id number] Karrie Echavarria Notice Issued Date-Time: 07/13/2018 12:04 Notice Type: IM Discharge Notice Notice Delivered To: Family Member Relationship to Patient: Son Property Specialist Name: Cheng Bonilla Delivery Method: HAND - Hand Delivered [place] Days: Prior Verbal Notification: Recipient Understood Notice: Yes Recipient Signature: Yes Med Rec Note Co-signed by Attending: Coverage Notice Comment: IMM explained, signed, copy given, original placed in MR Last DP export: 07/13/18 11:12 Patient Name: JOANIE BONILLA Page [id number] at 0901 All edits/amendments must be made on the electronic document DICTATION DATE: 07/14/18899 HEAD OF DRAMA: HERNANDEZ 07/14/18899 RPT#: [id number] DC DATE:07/13/18 STATUS: DIS IN [facility] [address] [place] [address] END OF REPORT
[2018-07-08 18:38] LABS: BASOPHILS 0.6 % (0-2); EOSINOPHILS 2.4 % (0-7); HEMATOCRIT 33.9 % (36.0-48.0); HEMOGLOBIN 11.5 g/dL (12-16); IMMATURE GRANULOCYTES 0.3 % (0-5); LYMPHOCYTES 32.1 % (15-50); MCH 32.3 pg (26.0-34.0); MCHC 33.9 g/dL (31.0-37.0); MCV 95.2 fL (80.0-100.0); MEAN PLATELET VOLUME 9.6 fL (7.4-10.4); MONOCYTES 14.7 % (2-11); NEUTROPHILS 49.9 % (40-80); RBC 3.56 10x6/uL (4.00-5.40); RDW 15.1 % (11.5-14.5); WBC 3.3 10x3/uL (4.8-10.8)
[2018-07-08 18:39] LABS: PLATELET COUNT 135 10x3/uL (130-400)
[2018-07-08 18:54] LABS: ALBUMIN 3.2 g/dL (3.4-5.0); ANION GAP 7.9 mmol/L (8-16); BILIRUBIN - TOTAL 0.94 mg/dL (0.2-1.3); CALCIUM 8.4 mg/dL (8.5-10.1); CREATININE - SERUM 0.8 mg/dL (0.6-1.3); PROTEIN - SERUM 8.2 g/dL (6.4-8.2)
[2018-07-08 18:56] LABS: POTASSIUM - SERUM 2.9 mmol/L (3.5-5.1)
[2018-07-08 20:19] VITALS: BP 124/55; BMI 24.5
[2018-07-09 05:29] LABS: HEMATOCRIT 30.6 % (36.0-48.0); HEMOGLOBIN 10.2 g/dL (12-16); MCH 31.7 pg (26.0-34.0); MCHC 33.3 g/dL (31.0-37.0); MEAN PLATELET VOLUME 9.2 fL (7.4-10.4); RBC 3.22 10x6/uL (4.00-5.40); RDW 15.1 % (11.5-14.5)
[2018-07-09 05:55] LABS: ALBUMIN 2.7 g/dL (3.4-5.0); ALKALINE PHOSPHATASE 125 U/L (46-116); BILIRUBIN - TOTAL 0.78 mg/dL (0.2-1.3); CALC OSMOLALITY 276 mosm/kg (275-300); CARBON DIOXIDE 31.6 mmol/L (21.0-32.0); CHLORIDE - SERUM 101 mmol/L (98-107); CREATININE - SERUM 0.7 mg/dL (0.6-1.3); GLUCOSE 84 mg/dL (74-106); PROTEIN - SERUM 7.1 g/dL (6.4-8.2); SODIUM 140 mmol/L (136-145); UREA NITROGEN 9 mg/dL (7-18); eGFR NON AFRICAN AMERICAN 85 mL/min (90-120)
[2018-07-09 05:56] LABS: PLATELET COUNT 100 10x3/uL (130-400); WBC 2.4 10x3/uL (4.8-10.8)
[2018-07-09 06:33] LABS: ALT (SGPT) 16 U/L (10-68)
[2018-07-09 06:36] LABS: POTASSIUM - SERUM 2.9 mmol/L (3.5-5.1)
[2018-07-09 07:30] LABS: EOSINOPHILS 1 % (0-7); HYPOCHROMASIA OCC; LYMPHOCYTES 36 % (15-50); MONOCYTES 11 % (2-11); NEUTROPHILS 51 % (40-80); PLATELET ESTIMATE DECREASED
[2018-07-09 10:35] VITALS: Ht 170.2 cm; Wt 70.8 kg
[2018-07-09 16:53] LABS: MAGNESIUM - SERUM 1.3 mg/dL (1.8-2.4)
[2018-07-09 17:18] LABS: APPEARANCE CLEAR (CLEAR); BILIRUBIN NEGATIVE (NEGATIVE); COLOR YELLOW (YELLOW); GLUCOSE NEGATIVE (NEGATIVE); KETONE NEGATIVE (NEGATIVE); NITRITE NEGATIVE (NEGATIVE); PROTEIN NEGATIVE (NEGATIVE)
[2018-07-09 17:19] LABS: AMORPHOUS SEDIMENT <1+ /lpf (NONE SEEN); BACTERIA FEW /hpf (NONE SEEN); MUCUS <1+ /lpf (NONE SEEN); WHITE CELLS - URINE OCC /hpf (0-5)
[2018-07-10 04:53] LABS: BASOPHILS 0.8 % (0-2); EOSINOPHILS 4.7 % (0-7); HEMATOCRIT 28.9 % (36.0-48.0); HEMOGLOBIN 9.3 g/dL (12-16); IMMATURE GRANULOCYTES 0.4 % (0-5); LYMPHOCYTES 31.4 % (15-50); MCH 31.3 pg (26.0-34.0); MCHC 32.2 g/dL (31.0-37.0); MEAN PLATELET VOLUME 9.8 fL (7.4-10.4); MONOCYTES 13.7 % (2-11); PLATELET COUNT 117 10x3/uL (130-400); RBC 2.97 10x6/uL (4.00-5.40); RDW 15.5 % (11.5-14.5); WBC 2.6 10x3/uL (4.8-10.8)
[2018-07-10 05:11] LABS: MCV 97.3 fL (80.0-100.0)
[2018-07-10 05:30] LABS: ALBUMIN 2.4 g/dL (3.4-5.0); ANION GAP 9.9 mmol/L (8-16); BILIRUBIN - TOTAL 0.71 mg/dL (0.2-1.3); CARBON DIOXIDE 29.7 mmol/L (21.0-32.0); PROTEIN - SERUM 6.4 g/dL (6.4-8.2)
[2018-07-10 05:32] LABS: CREATININE - SERUM 0.9 mg/dL (0.6-1.3); POTASSIUM - SERUM 3.6 mmol/L (3.5-5.1)
[2018-07-10 08:30] VITALS: BP 120/47
[2018-07-10 13:15] VITALS: BP 95/35
[2018-07-10 16:39] VITALS: BP 99/31
[2018-07-10 21:15] VITALS: BP 92/33
[2018-07-11 01:19] VITALS: BP 112/50
[2018-07-11 05:15] VITALS: BP 100/37
[2018-07-11 06:46] LABS: ALBUMIN 2.3 g/dL (3.4-5.0); ANION GAP 10.3 mmol/L (8-16); BILIRUBIN - TOTAL 0.63 mg/dL (0.2-1.3); CALCIUM 8.2 mg/dL (8.5-10.1); CARBON DIOXIDE 29.6 mmol/L (21.0-32.0); CREATININE - SERUM 0.9 mg/dL (0.6-1.3); POTASSIUM - SERUM 3.9 mmol/L (3.5-5.1); PROTEIN - SERUM 6.4 g/dL (6.4-8.2)
[2018-07-11 06:54] LABS: BASOPHILS 0.8 % (0-2); EOSINOPHILS 6.7 % (0-7); HEMATOCRIT 28.9 % (36.0-48.0); HEMOGLOBIN 9.3 g/dL (12-16); LYMPHOCYTES 32.9 % (15-50); MCH 31.4 pg (26.0-34.0); MCHC 32.2 g/dL (31.0-37.0); MCV 97.6 fL (80.0-100.0); MEAN PLATELET VOLUME 9.9 fL (7.4-10.4); MONOCYTES 11.9 % (2-11); NEUTROPHILS 47.7 % (40-80); PLATELET COUNT 104 10x3/uL (130-400); RBC 2.96 10x6/uL (4.00-5.40); RDW 15.3 % (11.5-14.5); WBC 2.5 10x3/uL (4.8-10.8)
[2018-07-11 08:32] VITALS: BP 121/60
[2018-07-11 14:15] VITALS: BP 100/66
[2018-07-11 16:20] VITALS: BP 114/68
[2018-07-11 20:51] VITALS: BP 115/68
[2018-07-12 01:52] VITALS: BP 108/64
[2018-07-12 05:05] VITALS: BP 100/54
[2018-07-12 05:35] LABS: BASOPHILS 0.9 % (0-2); EOSINOPHILS 6.8 % (0-7); HEMATOCRIT 29.4 % (36.0-48.0); HEMOGLOBIN 9.4 g/dL (12-16); LYMPHOCYTES 36.2 % (15-50); MCH 31.5 pg (26.0-34.0); MCV 98.7 fL (80.0-100.0); MEAN PLATELET VOLUME 9.7 fL (7.4-10.4); MONOCYTES 15.8 % (2-11); NEUTROPHILS 40.3 % (40-80); PLATELET COUNT 109 10x3/uL (130-400); RBC 2.98 10x6/uL (4.00-5.40); RDW 15.2 % (11.5-14.5); WBC 2.2 10x3/uL (4.8-10.8)
[2018-07-12 05:46] LABS: ALBUMIN 2.3 g/dL (3.4-5.0); ANION GAP 9.2 mmol/L (8-16); BILIRUBIN - TOTAL 0.61 mg/dL (0.2-1.3); CALCIUM 8.2 mg/dL (8.5-10.1); CREATININE - SERUM 0.9 mg/dL (0.6-1.3); POTASSIUM - SERUM 4.2 mmol/L (3.5-5.1)
[2018-07-12 08:00] VITALS: BP 126/45
[2018-07-12 13:49] VITALS: BP 145/76; BP 95/33
[2018-07-12 16:30] VITALS: BP 105/47
[2018-07-12 20:00] VITALS: BP 102/52
[2018-07-13] VITALS: BP 110/49
[2018-07-13 04:00] VITALS: BP 118/51
[2018-07-13 04:37] LABS: BASOPHILS 0.3 % (0-2); EOSINOPHILS 5.6 % (0-7); HEMATOCRIT 30.3 % (36.0-48.0); HEMOGLOBIN 9.8 g/dL (12-16); IMMATURE GRANULOCYTES 0.3 % (0-5); LYMPHOCYTES 31.4 % (15-50); MCH 31.5 pg (26.0-34.0); MCHC 32.3 g/dL (31.0-37.0); MCV 97.4 fL (80.0-100.0); MEAN PLATELET VOLUME 10.3 fL (7.4-10.4); MONOCYTES 12.9 % (2-11); NEUTROPHILS 49.5 % (40-80); PLATELET COUNT 125 10x3/uL (130-400); RBC 3.11 10x6/uL (4.00-5.40); RDW 15.2 % (11.5-14.5)
[2018-07-13 04:49] LABS: WBC 2.9 10x3/uL (4.8-10.8)
[2018-07-13 04:54] LABS: ALBUMIN 2.5 g/dL (3.4-5.0); BILIRUBIN - TOTAL 0.64 mg/dL (0.2-1.3); CALCIUM 8.6 mg/dL (8.5-10.1); CARBON DIOXIDE 30.1 mmol/L (21.0-32.0); CREATININE - SERUM 0.9 mg/dL (0.6-1.3); POTASSIUM - SERUM 4.1 mmol/L (3.5-5.1); PROTEIN - SERUM 6.7 g/dL (6.4-8.2)
[2018-07-13 08:45] VITALS: BP 128/52
[2018-07-13] MEDS ORDERED: KEFLEX250 MG PO (12:05)
[2018-07-13 13:05] VITALS: BP 92/36
== END 2018-07-13 15:40 | DRG 603 ==
LOC: D.MS 16:37
PROVIDERS: Family Medicine
DX: L03.116 Cellulitis of left lower limb (principal); I83.228 Varicose veins of left lower extremity with both ulcer of other part of lower extremity and inflammation; L97.821 Non-pressure chronic ulcer of other part of left lower leg limited to breakdown of skin; L03.115 Cellulitis of right lower limb; N76.0 Acute vaginitis; I10 Essential (primary) hypertension; K21.9 Gastro-esophageal reflux disease without esophagitis; I48.91 Unspecified atrial fibrillation; I70.203 Unspecified atherosclerosis of native arteries of extremities, bilateral legs; I87.2 Venous insufficiency (chronic) (peripheral)

== ENCOUNTER 2018-09-23 11:08 | Inpatient (IN) | payer MEDICARE, OTHER ==
[~2018-09-23] VITALS: Ht 170.2 cm; Wt 75.3 kg
[~2018-09-23 11:08] MED LIST changes: +KEFLEX250 MG PO
[2018-09-23] MEDS ORDERED: HYDROCODON-ACE1 EAC7 PO (11:43)
[2018-09-23] MEDS ORDERED: OMEPRAZOLE20 M1 PO (11:48)
[2018-09-23 12:59] LABS: EOSINOPHILS 5.9 % (0-7); HEMATOCRIT 34.6 % (36.0-48.0); HEMOGLOBIN 11.5 g/dL (12-16); IMMATURE GRANULOCYTES 0.2 % (0-5); LYMPHOCYTES 30.8 % (15-50); MCH 29.7 pg (26.0-34.0); MCHC 33.2 g/dL (31.0-37.0); MCV 89.4 fL (80.0-100.0); MEAN PLATELET VOLUME 9.7 fL (7.4-10.4); NEUTROPHILS 50.1 % (40-80); RBC 3.87 10x6/uL (4.00-5.40); RDW 17.9 % (11.5-14.5); WBC 4.1 10x3/uL (4.8-10.8)
[2018-09-23 13:04] VITALS: BP 105/46
[2018-09-23 13:07] LABS: PLATELET COUNT 164 10x3/uL (130-400)
[2018-09-23 13:17] LABS: ALBUMIN 3.2 g/dL (3.4-5.0); ANION GAP 13.8 mmol/L (8-16); BILIRUBIN - TOTAL 1.06 mg/dL (0.2-1.3); CALCIUM 8.9 mg/dL (8.5-10.1); CARBON DIOXIDE 27.1 mmol/L (21.0-32.0); CREATININE - SERUM 1.1 mg/dL (0.6-1.3); POTASSIUM - SERUM 3.9 mmol/L (3.5-5.1); PROTEIN - SERUM 8.1 g/dL (6.4-8.2)
--- NOTE | 2018-09-23 13:50 | NUR ---
[address] IV PLACE LEFT FOREARM. 2 ATTEMPTS. PATIENT TOLERATED WELL.
--- NOTE | 2018-09-23 16:17 | MORECARE ---
CASE MANAGEMENT DISCHARGE SUMMARY PATIENT: JOANIE ALMODOVAR UNIT: [id number] ADM DATE: 09/23/18 AGE: 78 : 38 SEX: F ROOM/BED: D.[facility] AUTHOR: SRAVANI WASHBURN PHYSICIAN: REFERRING PHYSICIAN: LISA RICO DO DATE OF SERVICE: 09/23/18 Discharge Plan Patient Name: JOANIE ALMODOVAR [facility] [facility] 1940 Planned Disposition: Jail Facility Anticipated Discharge Date: Discharge Date: Expected LOS: Initial Reviewer: [email or web address] Initial Review Date: 09/23/2018 Generated: 09/23/18 5:17 pm Patient Name: JOANIE ALMODOVAR Page [id number] at 1617 All edits/amendments must be made on the electronic document DICTATION DATE: 09/23/181616 TELEPHONER: HERNANDEZ 09/23/181616 RPT#: [id number] DC DATE: STATUS: ADM IN [facility] [address] [place] [address] END OF REPORT
--- NOTE | 2018-09-23 16:35 | MORECARE ---
CASE MANAGEMENT DISCHARGE SUMMARY PATIENT: JOANIE BONILLA UNIT: [id number] ADM DATE: 09/23/18 AGE: 78 : 38 SEX: F ROOM/BED: D.2231 AUTHOR: WUDOC PHYSICIAN: REFERRING PHYSICIAN: LISA RICO DO DATE OF SERVICE: 09/23/18 Discharge Plan Patient Name: JOANIE BONILLA Facility: [facility]:[place] : 1940 Planned Disposition: Group Home Facility Anticipated Discharge Date: Discharge Date: Expected LOS: Initial Reviewer: [email or web address] Initial Review Date: 09/23/2018 Generated: 09/23/18 5:35 pm Comments DCP- Discharge Planning Updated by [email or web address]: Pam Echavarria on 09/23/18 3:[address] Patient Name: JOANIE BONILLA Admission Status: Urgent Accout number: [id number] Admission Date: 09-23-2018 : 1940 Admission Diagnosis: Attending: LISA RICO Current LOS: 1 Anticipated DC Date: Planned Disposition: Group Home Facility Primary Insurance: MEDICARE A & B Discharge Planning Comments: CM met with patient to discuss discharge planning, she is alone in the room. States she lives with her son, they have moved to [place]. States her son takes total care of her. States she does want rehab prior to returning home with Cheng. States she would like me to call her son to get more questions answered. I called her son and he agrees with [facility] for skilled therapy. He states she has been completely dependent on her and needs therapy. He states she has [facility] from [place] for her dressing changes. I called Ro at [facility] and clinical faxed. CM will continue to follow and assist with discharge planning/needs. Analyst Business Analysis: Pam Echavarria DCPIA - Discharge Planning Initial Assessment Updated by [email or web address]: Pam Echavarria on 09/23/18 4:30 pm * Is the patient Alert and Oriented? Yes * How many steps to enter\exit or inside your home? 1/0 * PCP Dr. Rico * Pharmacy [facility] in [place] * Preadmission Environment Home with Family * ADLs Total Dependent * Equipment Other Rolling Walker * Other Equipment Medical alert button (necklace) * List name and contact numbers for known caregivers / representatives who currently or will assist patient after discharge: Cheng Bonilla - [facility] - [phone] * Verbal permission to speak to the caregivers and representatives has been obtained from the patient. Yes * Community resources currently utilized Home Health * Please name any agencies selected above. [facility] * Additional services required to return to the preadmission environment? Yes * Can the patient safely return to the preadmission environment? No * Has this patient been hospitalized within the prior 30 days at any hospital? No External Providers External Provider: [facility] Next Contact Date: Service Request Date: Service Type: Resolution: Reviewer: Comments: Last DP export: 09/23/18 3:17 p Patient Name: JOANIE BONILLA Page [phone] at 1635 All edits/amendments must be made on the electronic document DICTATION DATE: 09/23/18 163 NUT BLANKER OPERATOR: HERNANDEZ 09/23/18 163 RPT#: [id number] DC DATE: STATUS: ADM IN [facility] [address] [place] [address] END OF REPORT
[2018-09-23 16:57] VITALS: BP 172/84
[2018-09-23 18:41] VITALS: BMI 26.0
--- NOTE | 2018-09-23 19:20 | NUR ---
PT ALERT WHEN ENTERING THE ROOM. PT ORIENTED TO SELF, PLACE, AND SITUATION BUT UNAWARE OF DATE AND TIME. PT COMPLAINS OF BILATERAL LEG PAIN AND STATES THAT "LEFT SIDE HURTS MORE THAN THE OTHER". REPOSITIONED PATIENT. PATIENT STATES THAT NO RELIEF. PT ASKS TO REMOVED PLEXI PULSES. REMOVED AT THIS TIME. PT STATES RELIEF. PT HAS BILATERAL MATTHEW DRESSING WITH NO DRAINAGE NOTED. BOTH BILATERAL LOWER EXTREMETIES PRESENT WITH 3+ EMDEMA. PT SHAKES AT TIMES AND HAS PROBLEMS HOLDING CUPS. HELPED REPOSITION PT AGAIN. PT STATES COMFORTABLE AT THIS TIME. PT IS HARD OF HEARING. WEARS HEARING AIDS. CALL LIGHT IN REACH OF PATIENT.
[2018-09-23 20:00] VITALS: BP 107/83; BP 111/56
--- NOTE | 2018-09-23 21:18 | NUR ---
PT ALERT AND ORIENTED WHEN ENTERING THE ROOM.
--- NOTE | 2018-09-23 21:28 | NUR ---
EYES CLOSED RESPIRATIONS WITH EASE AND UNLABORED. NO S/S OF DISTRESS. SR UP X2 CALL LIGHT WITHIN REACH.
[2018-09-24] VITALS: BP 100/50; BP 132/62
--- NOTE | 2018-09-24 01:11 | NUR ---
PT REFUSES TAVAREZ CATHETER. STATES SHE IS ABLE TO GET UP WITH ASSISTANCE AND DOES NOT WANT A CATHETER AT THIS TIME. EDUCATED PATIENT THAT EXCORATION ON BOTTOM WILL BE AGGRAVATED BY INCONTIENCE. PT ADAMANTLY REFUSES TAVAREZ CATHETER AT THIS TIME.
[2018-09-24 04:00] VITALS: BP 98/36
[2018-09-24 05:12] LABS: HEMATOCRIT 27.8 % (36.0-48.0); HEMOGLOBIN 8.9 g/dL (12-16); MCH 28.8 pg (26.0-34.0); MEAN PLATELET VOLUME 9.7 fL (7.4-10.4); PLATELET COUNT 107 10x3/uL (130-400); RBC 3.09 10x6/uL (4.00-5.40); RDW 18.1 % (11.5-14.5); WBC 2.8 10x3/uL (4.8-10.8)
[2018-09-24 05:21] LABS: ALBUMIN 2.3 g/dL (3.4-5.0); ANION GAP 10.5 mmol/L (8-16); BILIRUBIN - TOTAL 0.65 mg/dL (0.2-1.3); CALCIUM 7.9 mg/dL (8.5-10.1); CARBON DIOXIDE 28.1 mmol/L (21.0-32.0); CREATININE - SERUM 1.1 mg/dL (0.6-1.3); POTASSIUM - SERUM 3.6 mmol/L (3.5-5.1); PROTEIN - SERUM 6.1 g/dL (6.4-8.2)
[2018-09-24 05:37] LABS: BASOPHILS 4 % (0-2); EOSINOPHILS 6 % (0-7); LYMPHOCYTES 42 % (15-50); MONOCYTES 7 % (2-11); NEUTROPHILS 40 % (40-80); PLATELET ESTIMATE DECREASED
[2018-09-24 07:16] LABS: APPEARANCE CLEAR (CLEAR); BILIRUBIN NEGATIVE (NEGATIVE); COLOR YELLOW (YELLOW); GLUCOSE NEGATIVE (NEGATIVE); KETONE NEGATIVE (NEGATIVE); NITRITE NEGATIVE (NEGATIVE); PROTEIN NEGATIVE (NEGATIVE); SPECIFIC GRAVITY 1.015 (1.005-1.020); UROBILINOGEN NORMAL (NORMAL)
--- NOTE | 2018-09-24 07:42 | NUR ---
PT IS RESTING IN BED WITH EYES OPEN. RESPIRATIONS ARE EVEN AND UNLABORED. PT IS HARD OR HEARING BUT DOES HAVE A HEARING AID IN LEFT EAR. BED IS IN THE LOWEST POSITION. PLEXI PULSE ON BILATERAL FEET. 4+ PITTING EDEMA NOTED TO BILATERAL LOWER EXTREMITIES. DRESSING TO BILATERAL SHINS ARE C/D/I. OPEN AREAS NOTED TO COCCYX. WILL NOTIFY WOUND CARE NURSE. PT IS AAO X 4. BEDSIDE TABLE AND CALL LIGHT ARE WITHIN REACH. PT REFUSES REPOSITIONING AT THIS TIME. BED ALARM IS ON. WILL CONT TO MONITOR.
[2018-09-24 09:40] VITALS: BP 131/52
--- NOTE | 2018-09-24 10:39 | NUR ---
Pt was admitted to [place] last evening. She is noted to have several wounds as described below: Left sacrum: 1cm x 1cm stage 2 pressure injury Right sacrum: 1cm x 1cm stage 2 pressure injury Blanchable redness noted entire sacral area Right ross: 1xm x 1cm ulcer Left ross: 2cm x 2cm ulcer Pt states these ulcers "come up when my legs swell" 3+ edema noted Left #2 toe 1cm x 1cm ulcer Right #4 toe 0.5cm x 0.5cm healing ulcer Recommendations: -Mepilex sacral dressing to sacral wounds -Air overlay mattress -Turn/reposition every 2 hours while in bed -Calcium alginate applied to bilateral leg ulcers/covered with mepilex border -mepilex border to Left #2 and Right #4 toes for cushion/protection Wound care will continue monitoring.
[2018-09-24 12:22] VITALS: BMI 26.0
[2018-09-24 13:02] VITALS: BP 103/45
--- NOTE | 2018-09-24 13:26 | NUR ---
DRESSING CHANGED TO BILATERAL LOWER EXTREMITIES PER ORDER. DRESSING APPLIED TO COCCYX. PT TOLERATED WELL. BED IS IN THE LOWEST POSITION. CALL LIGHT AND BEDSIDE TABLE ARE WITHIN REACH. WILL CONT TO MONITOR.
--- NOTE | 2018-09-24 13:52 | NUR ---
Rehab Note- Acute Inpatient Rehab prescreen order received. The patient has a pending Diesel Engine Inspector consult and also a GeriPsych consult. Will follow at this time. Thank you for this referral! Sarah Barrett RN Clinical Liaison, [facility] Rehab
--- NOTE | 2018-09-24 14:09 | MORECARE ---
CASE MANAGEMENT DISCHARGE SUMMARY PATIENT: JOANIE BONILLA UNIT: [id number] ADM DATE: 09/23/18 AGE: 78 : 38 SEX: F ROOM/BED: D.2231 AUTHOR: SRAVANI WASHBURN PHYSICIAN: REFERRING PHYSICIAN: LISA RICO DO DATE OF SERVICE: 09/24/18 Discharge Plan Patient Name: JOANIE BONILLA Facility: [facility]:[place] : 1940 Planned Disposition: Alf Facility Anticipated Discharge Date: Discharge Date: Expected LOS: Initial Reviewer: [email or web address] Initial Review Date: 09/23/2018 Generated: 09/24/18 3:08 pm Comments DCP- Discharge Planning Updated by [email or web address]: Pam Echavarria on 09/24/18 1:[address] Received a call from Sarai at [facility], she does not have any skilled days left. She has only had 55 well days since last admission. I called patient's son, Cheng, and informed him that she does not have any skilled days available for insurance to pay. He states he knew that she had been home close to 60 days, but was unaware of exact number. I informed him any time he needs insurance benefit information he can call the number on the back of her card. I discussed possible inpatient rehab, home with home health and long term care pharmacist care. He states he is not going to put her in custodial care. He states he knows that it will come to that eventually with her dementia but is unwilling to do that at this time. He states he would like a referral to inpatient rehab at [facility]. Rehab screen ordered and I spoke with Lorraine in inpatient rehab. CM will continue to follow and assist with discharge planning/needs. DCP- Discharge Planning Updated by [email or web address]: Pam Echavarria on 09/23/18 3:[address] Patient Name: JOANIE BONILLA Admission Status: Urgent Accout number: [id number] Admission Date: 09-23-2018 : 1940 Admission Diagnosis: Attending: LISA RICO Current LOS: 1 Anticipated DC Date: Planned Disposition: Alf Facility Primary Insurance: MEDICARE A & B Discharge Planning Comments: CM met with patient to discuss discharge planning, she is alone in the room. States she lives with her son, they have moved to [place]. States her son takes total care of her. States she does want rehab prior to returning home with Cheng. States she would like me to call her son to get more questions answered. I called her son and he agrees with [facility] for skilled therapy. He states she has been completely dependent on her and needs therapy. He states she has [facility] from [place] for her dressing changes. I called Ro at [facility] and clinical faxed. CM will continue to follow and assist with discharge planning/needs. Corporate Communications Associate: Pam Echavarria DCPIA - Discharge Planning Initial Assessment Updated by [email or web address]: Pam Echavarria on 09/23/18 4:30 pm * Is the patient Alert and Oriented? Yes * How many steps to enter\exit or inside your home? 1/0 * PCP Dr. Rico * Pharmacy [facility] in [place] * Preadmission Environment Home with Family * ADLs Total Dependent * Equipment Other Rolling Walker * Other Equipment Medical alert button (necklace) * List name and contact numbers for known caregivers / representatives who currently or will assist patient after discharge: Cheng Bonilla - son - [phone] * Verbal permission to speak to the caregivers and representatives has been obtained from the patient. Yes * Community resources currently utilized Home Health * Please name any agencies selected above. [facility] * Additional services required to return to the preadmission environment? Yes * Can the patient safely return to the preadmission environment? No * Has this patient been hospitalized within the prior 30 days at any hospital? No Last DP export: 09/23/18 3:35 p Patient Name: JOANIE BONILLA Page [id number] at 1409 All edits/amendments must be made on the electronic document DICTATION DATE: 09/24/181407 NURSERY MANAGER: HERNANDEZ 09/24/181407 RPT#: [id number] [place] DATE: STATUS: ADM IN [facility] [address] [place] [address] END OF REPORT
--- NOTE | 2018-09-24 14:44 | MORECARE ---
CASE MANAGEMENT DISCHARGE SUMMARY PATIENT: JOANIE BONILLA UNIT: [id number] ADM DATE: 09/23/18 AGE: 78 : 38 SEX: F ROOM/BED: D.2231 AUTHOR: SRAVANI WASHBURN PHYSICIAN: REFERRING PHYSICIAN: LISA RICO DO DATE OF SERVICE: 09/24/18 Discharge Plan Patient Name: JOANIE BONILLA Facility: [facility]:[place] : 1940 Planned Disposition: Halfway Facility Anticipated Discharge Date: Discharge Date: Expected LOS: Initial Reviewer: [email or web address] Initial Review Date: 09/23/2018 Generated: 09/24/18 3:43 pm Comments DCP- Discharge Planning Updated by [email or web address]: Pam Echavarria on 09/24/18 1:[address] Received a call from Sarai at [facility], she does not have any skilled days left. She has only had 55 well days since last admission. I called patient's son, Cheng, and informed him that she does not have any skilled days available for insurance to pay. He states he knew that she had been home close to 60 days, but was unaware of exact number. I informed him any time he needs insurance benefit information he can call the number on the back of her card. I discussed possible inpatient rehab, home with home health and bed bug exterminator care. He states he is not going to put her in correction care. He states he knows that it will come to that eventually with her dementia but is unwilling to do that at this time. He states he would like a referral to inpatient rehab at [facility]. Rehab screen ordered and I spoke with Lorraine in inpatient rehab. CM will continue to follow and assist with discharge planning/needs. DCP- Discharge Planning Updated by [email or web address]: Pam Echavarria on 09/23/18 3:[address] Patient Name: JOANIE BONILLA Admission Status: Urgent Accout number: [id number] Admission Date: 09-23-2018 : 1940 Admission Diagnosis: Attending: LISA RICO Current LOS: 1 Anticipated DC Date: Planned Disposition: Halfway Facility Primary Insurance: MEDICARE A & B Discharge Planning Comments: CM met with patient to discuss discharge planning, she is alone in the room. States she lives with her son, they have moved to [place]. States her son takes total care of her. States she does want rehab prior to returning home with Cheng. States she would like me to call her son to get more questions answered. I called her son and he agrees with [facility] for skilled therapy. He states she has been completely dependent on her and needs therapy. He states she has [facility] from [place] for her dressing changes. I called Ro at [facility] and clinical faxed. CM will continue to follow and assist with discharge planning/needs. Absorption Operator: Pam Echavarria DCPIA - Discharge Planning Initial Assessment Updated by [email or web address]: Pam Echavarria on 09/23/18 4:30 pm * Is the patient Alert and Oriented? Yes * How many steps to enter\exit or inside your home? 1/0 * PCP Dr. Rico * Pharmacy [facility] in [place] * Preadmission Environment Home with Family * ADLs Total Dependent * Equipment Other Rolling Walker * Other Equipment Medical alert button (necklace) * List name and contact numbers for known caregivers / representatives who currently or will assist patient after discharge: Cheng Bonilla - son - [phone] * Verbal permission to speak to the caregivers and representatives has been obtained from the patient. Yes * Community resources currently utilized Home Health * Please name any agencies selected above. [facility] * Additional services required to return to the preadmission environment? Yes * Can the patient safely return to the preadmission environment? No * Has this patient been hospitalized within the prior 30 days at any hospital? No External Providers External Provider: [facility] Next Contact Date: Service Request Date: Service Type: Resolution: Reviewer: Comments: Last DP export: 09/24/18 1:08 p Patient Name: JOANIE BONILLA Page [id number] at 1444 All edits/amendments must be made on the electronic document DICTATION DATE: 09/24/181442 STUDENT DEVELOPMENT DEAN: HERNANDEZ 09/24/181442 RPT#: [id number] DC DATE: STATUS: ADM IN [facility] [address] [place] [address] END OF REPORT
--- NOTE | 2018-09-24 15:00 | MORECARE ---
CASE MANAGEMENT DISCHARGE SUMMARY PATIENT: JOANIE BONILLA UNIT: [id number] ADM DATE: 09/23/18 AGE: 78 : 38 SEX: F ROOM/BED: D.2231 AUTHOR: WUDOC PHYSICIAN: REFERRING PHYSICIAN: LISA RICO DO DATE OF SERVICE: 09/24/18 Discharge Plan Patient Name: JOANIE BONILLA Facility: [facility]:[place] : 1940 Planned Disposition: Penitentiary Facility Anticipated Discharge Date: Discharge Date: Expected LOS: Initial Reviewer: [email or web address] Initial Review Date: 09/23/2018 Generated: 09/24/18 4:00 pm Comments DCP- Discharge Planning Updated by [email or web address]: Pam Echavarria on 09/24/18 1:[address] Patient Name: JOANIE BONILLA Admission Status: Urgent Accout number: [id number] Admission Date: 09-23-2018 : 1940 Admission Diagnosis: Attending: LISA RICO Current LOS: 1 Anticipated DC Date: Planned Disposition: Penitentiary Facility Primary Insurance: MEDICARE A & B Discharge Planning Comments: Patient's son called and would like his second choice for rehab to be [facility] in [place]. I called Beckie Tomas at [facility] and inquired about the Swing Beds. I informed her that she does not have any skilled days available. She asks me to send clinical to her and she will review. Clinical faxed to [phone]. . CM will continue to follow and assist with discharge planning/needs. Scraper Tender: Pam Echavarria DCP- Discharge Planning Updated by [email or web address]: Pam Jericho on 09/24/18 1:[address] Received a call from Sarai at [facility], she does not have any skilled days left. She has only had 55 well days since last admission. I called patient's son, Cheng, and informed him that she does not have any skilled days available for insurance to pay. He states he knew that she had been home close to 60 days, but was unaware of exact number. I informed him any time he needs insurance benefit information he can call the number on the back of her card. I discussed possible inpatient rehab, home with home health and senior care care. He states he is not going to put her in senior care care. He states he knows that it will come to that eventually with her dementia but is unwilling to do that at this time. He states he would like a referral to inpatient rehab at [facility]. Rehab screen ordered and I spoke with Lorraine in inpatient rehab. CM will continue to follow and assist with discharge planning/needs. DCP- Discharge Planning Updated by [id number]: Pam Echavarria on 09/23/18 3:[address] Patient Name: JOANIE BONILLA Admission Status: Urgent Accout number: [id number] Admission Date: 09-23-2018 : 1940 Admission Diagnosis: Attending: LISA RICO Current LOS: 1 Anticipated DC Date: Planned Disposition: Penitentiary Facility Primary Insurance: MEDICARE A & B Discharge Planning Comments: CM met with patient to discuss discharge planning, she is alone in the room. States she lives with her son, they have moved to [place]. States her son takes total care of her. States she does want rehab prior to returning home with Cheng. States she would like me to call her son to get more questions answered. I called her son and he agrees with [facility] for skilled therapy. He states she has been completely dependent on her and needs therapy. He states she has [facility] from [place] for her dressing changes. I called Ro at [facility] and clinical faxed. CM will continue to follow and assist with discharge planning/needs. Scraper Tender: Pam Echavarria DCPIA - Discharge Planning Initial Assessment Updated by [email or web address]: Pam Echavarria on 09/23/18 4:30 pm * Is the patient Alert and Oriented? Yes * How many steps to enter\exit or inside your home? 1/0 * PCP Dr. Rico * Pharmacy [facility] in [place] * Preadmission Environment Home with Family * ADLs Total Dependent * Equipment Other Rolling Walker * Other Equipment Medical alert button (necklace) * List name and contact numbers for known caregivers / representatives who currently or will assist patient after discharge: Cheng Bonilla - son - [phone] * Verbal permission to speak to the caregivers and representatives has been obtained from the patient. Yes * Community resources currently utilized Home Health * Please name any agencies selected above. [facility] * Additional services required to return to the preadmission environment? Yes * Can the patient safely return to the preadmission environment? No * Has this patient been hospitalized within the prior 30 days at any hospital? No Last DP export: 09/24/18 1:43 p Patient Name: JOANIE BONILLA Page 52841 at 1500 All edits/amendments must be made on the electronic document DICTATION DATE: 09/24/181458 LEGAL INSTRUMENTS EXAMINER: HERNANDEZ 09/24/181458 RPT#: [id number] DC DATE: STATUS: ADM IN [facility] [address] [place] [address] END OF REPORT
[2018-09-24 17:09] VITALS: BP 142/50
[2018-09-24 18:20] VITALS: BP 118/44
--- NOTE | 2018-09-24 19:23 | NUR ---
OT NOTE: PT COMPLETED BED MOB SIDE ROLLING WITH SBA. PT COMPLETED GROOMING/HYGIENE TASKS WITH SET UP SITTING UP IN BED. PT COMPLETED UE AROM EXS. THANK YOU, ADRIANNE PUTNAM
--- NOTE | 2018-09-24 20:00 | NUR ---
ALERT ORIENTIATED RESTING IN BED RESP UNLABORED EDEMA NOTED TO BILATERAL LOWER EXTREMITIES, IV INFUSING WITHOUT DIFFICULTY, DENIES ANY NEEDS AT THIS TIME CALL LIGHT IN REACH
[2018-09-25 04:00] VITALS: BP 129/71
[2018-09-25 08:31] VITALS: BP 137/63
--- NOTE | 2018-09-25 10:30 | NUR ---
PATIENT SITTING IN CHAIR. NO SIGNS OF DISTRESS OR COMPLAINTS. ASSISTED TO BEDSIDE COMMODE AND BACK TO CHAIR. ALL NEEDS MET AT THIS TIME.
--- NOTE | 2018-09-25 11:59 | MORECARE ---
CASE MANAGEMENT DISCHARGE SUMMARY PATIENT: JOANIE BONILLA UNIT: [id number] ADM DATE: 09/23/18 AGE: 78 : 38 SEX: F ROOM/BED: D.2231 AUTHOR: SRAVANI WASHBURN PHYSICIAN: REFERRING PHYSICIAN: LISA RICO DO DATE OF SERVICE: 09/25/18 Discharge Plan Patient Name: JOANIE BONILLA Facility: [facility]:[place] : 1940 Planned Disposition: Retirement Facility Anticipated Discharge Date: Discharge Date: Expected LOS: Initial Reviewer: [email or web address] Initial Review Date: 09/23/2018 Generated: 09/25/18 12:59 pm Comments DCP- Discharge Planning Updated by [email or web address]: Pam Echavarria on 09/25/18 10:[address] Sarah in inpatient rehab states they will accept patient to inpatient rehab when her consults are completed with Dr. Flanagan and Dr. Guerra. I have called correction and spoke with Demetrio and informed her consult has not been completed. She states she will let Dr. Guerra know when he rounds today. CM will continue to follow and assist with discharge planning/needs. DCP- Discharge Planning Updated by [email or web address]: Pam Echavarria on 09/24/18 1:[address] Patient Name: JOANIE BONILLA Admission Status: Urgent Accout number: [id number] Admission Date: 09-23-2018 : 1940 Admission Diagnosis: Attending: LISA RICO Current LOS: 1 Anticipated DC Date: Planned Disposition: Retirement Facility Primary Insurance: MEDICARE A & B Discharge Planning Comments: Patient's son called and would like his second choice for rehab to be [facility] in [place]. I called Beckie Tomas at [facility] and inquired about the Swing Beds. I informed her that she does not have any skilled days available. She asks me to send clinical to her and she will review. Clinical faxed to [phone]. . CM will continue to follow and assist with discharge planning/needs. Network Technical Analyst: Pam Echavarria DCP- Discharge Planning Updated by [email or web address]: Pam Echavarria on 09/24/18 1:[address] Received a call from Sarai at [facility], she does not have any skilled days left. She has only had 55 well days since last admission. I called patient's son, Cheng, and informed him that she does not have any skilled days available for insurance to pay. He states he knew that she had been home close to 60 days, but was unaware of exact number. I informed him any time he needs insurance benefit information he can call the number on the back of her card. I discussed possible inpatient rehab, home with home health and terminal superintendent care. He states he is not going to put her in assisted care. He states he knows that it will come to that eventually with her dementia but is unwilling to do that at this time. He states he would like a referral to inpatient rehab at [facility]. Rehab screen ordered and I spoke with Lorraine in inpatient rehab. CM will continue to follow and assist with discharge planning/needs. DCP- Discharge Planning Updated by [email or web address]: Pam Echavarria on 09/23/18 3:[address] Patient Name: JOANIE BONILLA Admission Status: Urgent Accout number: [id number] Admission Date: 09-23-2018 : 1940 Admission Diagnosis: Attending: LISA RICO Current LOS: 1 Anticipated DC Date: Planned Disposition: Retirement Facility Primary Insurance: MEDICARE A & B Discharge Planning Comments: CM met with patient to discuss discharge planning, she is alone in the room. States she lives with her son, they have moved to [place]. States her son takes total care of her. States she does want rehab prior to returning home with Cheng. States she would like me to call her son to get more questions answered. I called her son and he agrees with [facility] for skilled therapy. He states she has been completely dependent on her and needs therapy. He states she has [facility] from [place] for her dressing changes. I called Ro at [facility] and clinical faxed. CM will continue to follow and assist with discharge planning/needs. Network Technical Analyst: Pam Echavarria DCPIA - Discharge Planning Initial Assessment Updated by [email or web address]: Pam Echavarria on 09/23/18 4:30 pm * Is the patient Alert and Oriented? Yes * How many steps to enter\exit or inside your home? 1/0 * PCP Dr. Rico * Pharmacy [facility] in [place] * Preadmission Environment Home with Family * ADLs Total Dependent * Equipment Other Rolling Walker * Other Equipment Medical alert button (necklace) * List name and contact numbers for known caregivers / representatives who currently or will assist patient after discharge: Cheng Bonilla - [facility] - [phone] * Verbal permission to speak to the caregivers and representatives has been obtained from the patient. Yes * Community resources currently utilized Home Health * Please name any agencies selected above. [facility] * Additional services required to return to the preadmission environment? Yes * Can the patient safely return to the preadmission environment? No * Has this patient been hospitalized within the prior 30 days at any hospital? No Last DP export: 09/24/18 2:00 p Patient Name: JOANIE BONILLA Page 88416 at 1159 All edits/amendments must be made on the electronic document DICTATION DATE: 09/25/18 1158 BINGO WORKER: HERNANDEZ 09/25/18 115 RPT#: [id number] DC DATE: STATUS: ADM IN [facility] [address] [place] [address] END OF REPORT
[2018-09-25 13:36] VITALS: Ht 170.2 cm; Wt 75.3 kg
[2018-09-25 13:37] LABS: BASOPHILS 0.7 % (0-2); IMMATURE GRANULOCYTES 0.2 % (0-5); MCH 29.6 pg (26.0-34.0); MCHC 32.8 g/dL (31.0-37.0); MCV 90.4 fL (80.0-100.0); MEAN PLATELET VOLUME 10.2 fL (7.4-10.4); MONOCYTES 11.9 % (2-11); NEUTROPHILS 68.2 % (40-80); RDW 18.2 % (11.5-14.5)
[2018-09-25 13:39] LABS: HEMATOCRIT 35.7 % (36.0-48.0); HEMOGLOBIN 11.7 g/dL (12-16); PLATELET COUNT 130 10x3/uL (130-400); RBC 3.95 10x6/uL (4.00-5.40); WBC 4.3 10x3/uL (4.8-10.8)
[2018-09-25 14:34] LABS: ANION GAP 10.9 mmol/L (8-16); CALCIUM 8.9 mg/dL (8.5-10.1); CARBON DIOXIDE 30.8 mmol/L (21.0-32.0); CREATININE - SERUM 1.1 mg/dL (0.6-1.3); POTASSIUM - SERUM 3.7 mmol/L (3.5-5.1)
[2018-09-25 15:35] VITALS: BP 125/55
--- NOTE | 2018-09-25 16:36 | NUR ---
OT NOTE: PT DOING MUCH BETTER TODAY. TRANSFERS WITH MIN ASSIST; TOLERATED SITTING UP IN CHAIR WITHOUT DIFFICULTY; PERFORMED FINE MOTOR ACTIVITIES WHILE SEATED. ABLE TO WASH FACE AND HANDS WITH CLOTH AND SET UP. CHELLE MATHIAS, OTR/L
--- NOTE | 2018-09-25 17:35 | NUR ---
OT NOTE: PT COMPLETED GROOMING TASKS WITH SET UP. PT COMPLETED BUE AROM EXS. PT COMPLETED SIDE ROLLING IN BED WITH SPV. THANK YOU, ADRIANNE PUTNAM
--- NOTE | 2018-09-25 19:05 | NUR ---
I have reviewed this patient and I concur with the Shift Assessment completed by the Licensed Practical Nurse today this shift.
--- NOTE | 2018-09-25 19:15 | NUR ---
RECEIVED CARE FROM DAY NURSE. SITTING UP IN BED. REPORTS NO NEEDS AT THIS TIME. CALL LIGHT AT SIDE. IV INFUSING PER ORDER TO LEFT FA.
[2018-09-25 20:08] VITALS: BP 114/36
--- NOTE | 2018-09-26 01:42 | NUR ---
I have reviewed this patient and I concur with the Shift Assessment completed by the Licensed Practical Nurse today this shift.
--- NOTE | 2018-09-26 04:34 | NUR ---
O2 LEVEL 86-90% ON ROOM AIR. PLACED ON 1L VIA NC TO HELP STABILIZE O2 SATURATION.
[2018-09-26 05:56] LABS: BASOPHILS 0.8 % (0-2); EOSINOPHILS 6.4 % (0-7); HEMATOCRIT 29.9 % (36.0-48.0); HEMOGLOBIN 9.7 g/dL (12-16); IMMATURE GRANULOCYTES 0.4 % (0-5); LYMPHOCYTES 34.1 % (15-50); MCH 29.3 pg (26.0-34.0); MCHC 32.4 g/dL (31.0-37.0); MCV 90.3 fL (80.0-100.0); MEAN PLATELET VOLUME 10.1 fL (7.4-10.4); MONOCYTES 9.8 % (2-11); NEUTROPHILS 48.5 % (40-80); RBC 3.31 10x6/uL (4.00-5.40); RDW 18.6 % (11.5-14.5)
[2018-09-26 06:00] LABS: PLATELET COUNT 103 10x3/uL (130-400); WBC 2.6 10x3/uL (4.8-10.8)
[2018-09-26 06:08] VITALS: BP 116/43
[2018-09-26 06:30] LABS: CALCIUM 8.3 mg/dL (8.5-10.1); CARBON DIOXIDE 31.3 mmol/L (21.0-32.0); CREATININE - SERUM 0.9 mg/dL (0.6-1.3); POTASSIUM - SERUM 3.3 mmol/L (3.5-5.1)
[2018-09-26 08:08] VITALS: BP 123/61
[2018-09-26] MEDS ORDERED: MIRALAX17 GM PO (10:07)
--- NOTE | 2018-09-26 12:03 | CN ---
PATIENT NAME:JOANIE ALMODOVAR MEDICAL RECORD: [id number] : [birth year] LOCATION:D.MS [address]223 ADMIT DATE: 09/23/18 ACCOUNT: [id number] CONSULTING PHYSICIAN: JOHN MICHAEL MD REFERRING PHYSICIAN: LISA RICO DO DATE OF CONSULTATION: 09/25/2018 IDENTIFYING DATA: The patient is 78 years old and admitted to the hospital secondary to generalized weakness, uterine prolapse, bilateral lower extremity edema, functional quadriplegia, and venous stasis ulcers. She is scheduled to go to rehab, but apparently cannot go until DUCT INSTALLER has addressed the prolapsed uterus and there is a note indicating that she cannot go until I have addressed her dementia. The patient has dementia, but no behavior problems. No psychosis. No thoughts of harming herself or others. No aggressive behavior. She has been pleasant and cooperative with staff and does not represent an acute danger. ASSESSMENT: Dementia, probably Alzheimer's in nature by history. PLAN: There are no psychiatric contraindications to this patient being transferred to inpatient rehab. TRANSINT:[id number] Voice Confirmation ID: [id number] DOCUMENT ID: [id number] JOHN MICHAEL MD at 1203 CC: [id number] DICTATION DATE: 09/25/18 172 HARNESS PLACER: 09/25/18 2113 ADM IN [place] [id number] [place] [address]
--- NOTE | 2018-09-26 12:35 | NUR ---
REHAB PRESCREENING Yesterday PT documented that this patient was confused and received bed mobility. This patient does not meet admission criteria for acute inpatient rehab as she must be willing and able to participate in the required 3 hours of therapy per day. Will follow PT documentation for today to assess participation and ambulation. Thank you for this referral! Lorraine Murray, OPTOMETRIC COORDINATOR Rehab Car Packer
[2018-09-26 16:31] VITALS: BP 122/59
--- NOTE | 2018-09-26 16:59 | NUR ---
REHAB PRESCREENING Rehab screen completed. Appreciate PT ambulating patient today 14 feet. Patient meets admission criteria. Lorraine Murray, PERSONNEL RECORDS CLERK Rehab PD
--- NOTE | 2018-09-26 17:39 | MORECARE ---
CASE MANAGEMENT DISCHARGE SUMMARY PATIENT: JOANIE BONILLA UNIT: [id number] ADM DATE: 09/23/18 AGE: 78 : 38 SEX: F ROOM/BED: D.2231 AUTHOR: SRAVANI WASHBURN PHYSICIAN: REFERRING PHYSICIAN: LISA RICO DO DATE OF SERVICE: 09/26/18 Discharge Plan Patient Name: JOANIE BONILLA Facility: [facility]:[place] : 1940 Planned Disposition: Residential Facility Anticipated Discharge Date: Discharge Date: Expected LOS: Initial Reviewer: [email or web address] Initial Review Date: 09/23/2018 Generated: 09/26/18 6:38 pm Comments DCP- Discharge Planning Updated by [email or web address]: Merry Rivera on 09/26/18 4:[address] RECEIVED TELEPHONE CALL FROM LORRAINE MAIL PROCESSING ASSOCIATE SCREENER, FOR ACUTE REHAB THIS PM. PLAN IS FOR THE PATIENT TO BE ADMITTED THIS LATE PM TO [facility] REHAB. AWAIT CALL BACK WITH BED ASSIGNMENT. DCP- Discharge Planning Updated by [email or web address]: Pam Echavarria on 09/25/18 10:[address] Sarah in inpatient rehab states they will accept patient to inpatient rehab when her consults are completed with Dr. Flanagan and Dr. Guerra. I have called detention and spoke with Demetrio and informed her consult has not been completed. She states she will let Dr. Guerra know when he rounds today. CM will continue to follow and assist with discharge planning/needs. DCP- Discharge Planning Updated by [email or web address]: Pam Echavarria on 09/24/18 1:[address] Patient Name: JOANIE BONILLA Admission Status: Urgent Accout number: [id number] Admission Date: 09-23-2018 : 1940 Admission Diagnosis: Attending: LISA RICO Current LOS: 1 Anticipated DC Date: Planned Disposition: Residential Facility Primary Insurance: MEDICARE A & B Discharge Planning Comments: Patient's son called and would like his second choice for rehab to be [facility] in [place]. I called Beckie Tomas at [facility] and inquired about the Swing Beds. I informed her that she does not have any skilled days available. She asks me to send clinical to her and she will review. Clinical faxed to [phone]. . CM will continue to follow and assist with discharge planning/needs. Site Director: Pam Echavarria DCP- Discharge Planning Updated by [email or web address]: Pam Echavarria on 09/24/18 1:[address] Received a call from Sarai at [facility], she does not have any skilled days left. She has only had 55 well days since last admission. I called patient's son, Cheng, and informed him that she does not have any skilled days available for insurance to pay. He states he knew that she had been home close to 60 days, but was unaware of exact number. I informed him any time he needs insurance benefit information he can call the number on the back of her card. I discussed possible inpatient rehab, home with home health and termite control representative care. He states he is not going to put her in termite control representative care. He states he knows that it will come to that eventually with her dementia but is unwilling to do that at this time. He states he would like a referral to inpatient rehab at [facility]. Rehab screen ordered and I spoke with Lorraine in inpatient rehab. CM will continue to follow and assist with discharge planning/needs. [facility]- Discharge Planning Updated by [email or web address]: Pam Echavarria on 09/23/18 3:[address] Patient Name: JOANIE BONILLA Admission Status: Urgent Accout number: [id number] Admission Date: 09-23-2018 : 1940 Admission Diagnosis: Attending: LISA RICO Current LOS: 1 Anticipated DC Date: Planned Disposition: Residential Facility Primary Insurance: MEDICARE A & B Discharge Planning Comments: CM met with patient to discuss discharge planning, she is alone in the room. States she lives with her son, they have moved to [place]. States her son takes total care of her. States she does want rehab prior to returning home with Cheng. States she would like me to call her son to get more questions answered. I called her son and he agrees with [facility] for skilled therapy. He states she has been completely dependent on her and needs therapy. He states she has [facility] from [place] for her dressing changes. I called Ro at [facility] and clinical faxed. CM will continue to follow and assist with discharge planning/needs. Site Director: Pam Jericho DCPIA - Discharge Planning Initial Assessment Updated by [email or web address]: Pam Jericho on 09/23/18 4:30 pm * Is the patient Alert and Oriented? Yes * How many steps to enter\exit or inside your home? 1/0 * PCP Dr. Rico * Pharmacy [facility] in [place] * Preadmission Environment Home with Family * ADLs Total Dependent * Equipment Other Rolling Walker * Other Equipment Medical alert button (necklace) * List name and contact numbers for known caregivers / representatives who currently or will assist patient after discharge: Cheng [facility] - [phone] * Verbal permission to speak to the caregivers and representatives has been obtained from the patient. Yes * Community resources currently utilized Home Health * Please name any agencies selected above. [facility] * Additional services required to return to the preadmission environment? Yes * Can the patient safely return to the preadmission environment? No * Has this patient been hospitalized within the prior 30 days at any hospital? No Last DP export: 09/25/18 10:59 am Patient Name: JOANIE BONILLA Page 32356 at 1739 All edits/amendments must be made on the electronic document DICTATION DATE: 09/26/181737 COMPLETIONS MANAGER: HERNANDEZ 09/26/181737 RPT#: [id number] ID DATE: STATUS: ADM IN [facility] [address] [place] [address] END OF REPORT
--- NOTE | 2018-09-29 10:02 | MORECARE ---
CASE MANAGEMENT DISCHARGE SUMMARY PATIENT: JOANIE BONILLA UNIT: [id number] ADM DATE: 09/23/18 AGE: 78 : 38 SEX: F ROOM/BED: D.2231 AUTHOR: SRAVANI WASHBURN PHYSICIAN: REFERRING PHYSICIAN: LISA RICO DO DATE OF SERVICE: 09/29/18 Discharge Plan Patient Name: JOANIE BONILLA Facility: [facility]:[place] : 1940 Planned Disposition: Shelter Facility Anticipated Discharge Date: Discharge Date: 09/26/2018 Expected LOS: 0 Initial Reviewer: [id number] Initial Review Date: 09/23/2018 Generated: 09/29/18 11:02 am Comments DCP- Discharge Planning Updated by [email or web address]: Merry Rivera on 09/26/18 4:[address] RECEIVED TELEPHONE CALL FROM LORRAINE, FACILITY ASSISTANT SCREENER, FOR ACUTE REHAB THIS PM. PLAN IS FOR THE PATIENT TO BE ADMITTED THIS LATE PM TO [facility]. AWAIT CALL BACK WITH BED ASSIGNMENT. DCP- Discharge Planning Updated by [id number]: Pam Echavarria on 09/25/18 10:[address] Sarah in inpatient rehab states they will accept patient to inpatient rehab when her consults are completed with Dr. Flanagan and Dr. Guerra. I have called [facility] and spoke with Demetrio and informed her consult has not been completed. She states she will let Dr. Guerra know when he rounds today. CM will continue to follow and assist with discharge planning/needs. DCP- Discharge Planning Updated by [email or web address]: Pam Echavarria on 09/24/18 1:[address] Patient Name: JOANIE BONILLA Admission Status: Urgent Accout number: [id number] Admission Date: 09-23-2018 : 1940 Admission Diagnosis: Attending: LISA RICO Current LOS: 1 Anticipated DC Date: Planned Disposition: Shelter Facility Primary Insurance: MEDICARE A & B Discharge Planning Comments: Patient's son called and would like his second choice for rehab to be [facility] in [place]. I called Beckie Tomas at [facility] and inquired about the Swing Beds. I informed her that she does not have any skilled days available. She asks me to send clinical to her and she will review. Clinical faxed to [phone]. . CM will continue to follow and assist with discharge planning/needs. [employer] Coordinator: Pam Echavarria DCP- Discharge Planning Updated by [id number]: Pam Echavarria on 09/24/18 1:[address] Received a call from Sarai at [facility], she does not have any skilled days left. She has only had 55 well days since last admission. I called patient's son, Cheng, and informed him that she does not have any skilled days available for insurance to pay. He states he knew that she had been home close to 60 days, but was unaware of exact number. I informed him any time he needs insurance benefit information he can call the number on the back of her card. I discussed possible inpatient rehab, home with home health and snf care. He states he is not going to put her in snf care. He states he knows that it will come to that eventually with her dementia but is unwilling to do that at this time. He states he would like a referral to inpatient rehab at [facility]. Rehab screen ordered and I spoke with Lorraine in inpatient rehab. CM will continue to follow and assist with discharge planning/needs. [facility]- Discharge Planning Updated by [id number]: Pam Echavarria on 09/23/18 3:[address] Patient Name: JOANIE BONILLA Admission Status: Urgent Accout number: [id number] Admission Date: 09-23-2018 : 1940 Admission Diagnosis: Attending: LISA RICO Current LOS: 1 Anticipated DC Date: Planned Disposition: Shelter Facility Primary Insurance: MEDICARE A & B Discharge Planning Comments: CM met with patient to discuss discharge planning, she is alone in the room. States she lives with her son, they have moved to [place]. States her son takes total care of her. States she does want rehab prior to returning home with Cheng. States she would like me to call her son to get more questions answered. I called her son and he agrees with [facility] for skilled therapy. He states she has been completely dependent on her and needs therapy. He states she has [facility] from [place] for her dressing changes. I called Ro at [facility] and clinical faxed. CM will continue to follow and assist with discharge planning/needs. [employer] Coordinator: Pam Echavarria DCPIA - Discharge Planning Initial Assessment Updated by [id number]: Pam Echavarria on 09/23/18 4:30 pm * Is the patient Alert and Oriented? Yes * How many steps to enter\exit or inside your home? 1/0 * PCP Dr. Rico * Pharmacy [facility] in [place] * Preadmission Environment Home with Family * ADLs Total Dependent * Equipment Other Rolling Walker * Other Equipment Medical alert button (necklace) * List name and contact numbers for known caregivers / representatives who currently or will assist patient after discharge: Cheng Bonilla - [facility] - [phone] * Verbal permission to speak to the caregivers and representatives has been obtained from the patient. Yes * Community resources currently utilized Home Health * Please name any agencies selected above. [facility] * Additional services required to return to the preadmission environment? Yes * Can the patient safely return to the preadmission environment? No * Has this patient been hospitalized within the prior 30 days at any hospital? No Last DP export: 09/26/18 4:39 pm Patient Name: JOANIE BONILLA Page [id number] at 1002 All edits/amendments must be made on the electronic document DICTATION DATE: 09/29/18 1001 REVENUE ANALYST: HERNANDEZ 09/29/18 1001 RPT#: [id number] DC DATE:09/26/18 STATUS: DIS IN [facility] [address] [place] [address] END OF REPORT
== END 2018-09-26 18:56 | DRG 592 ==
LOC: D.SDCHOLD 11:08 → D.MS 11:08
PROVIDERS: Internal Medicine Nephrology; ADMIT Family Medicine; ATTEND Family Medicine
DX: L97.921 Non-pressure chronic ulcer of unspecified part of left lower leg limited to breakdown of skin (principal); R53.2 Functional quadriplegia; I87.8 Other specified disorders of veins; L97.911 Non-pressure chronic ulcer of unspecified part of right lower leg limited to breakdown of skin; G30.9 Alzheimer's disease, unspecified; F02.80 Dementia in other diseases classified elsewhere, unspecified severity, without behavioral disturbance, psychotic disturbance, mood disturbance, and anxiety; I10 Essential (primary) hypertension; N81.89 Other female genital prolapse

== ENCOUNTER 2018-09-26 19:00 | Inpatient (IN) | payer MEDICARE, OTHER ==
[~2018-09-26] VITALS: Ht 170.2 cm; Wt 75.3 kg
--- NOTE | 2018-09-26 18:50 | NUR ---
PT ARRIVED ON UNIT PRIOR TO SHIFT REPORT. ADMITTED TO ROOM 1114B TO DR CUMMINGS [facility]. PT IS ALERT AND ORIENTED X 3. DENIES ACUTE DISCOMFORT AT THIS TIME.
[~2018-09-26 19:00] MED LIST changes: +HYDROCODON-ACE1 EAC7 PO; +MIRALAX17 GM PO
[2018-09-26 19:30] VITALS: BP 106/51
--- NOTE | 2018-09-26 20:00 | NUR ---
ADMIT ORIENTATION AND PAPERWORK DONE. PT ACKNOWLEDGES UNIT RULES. PT STATED SHE COULD NOT SIGN HER PAPERWORK, BUT GAVE VERBAL PERMISSION TO TREAT NEEDED.
[2018-09-26 20:06] VITALS: BP 133/55; BMI 26.0
--- NOTE | 2018-09-26 22:41 | NUR ---
PT IS RESTING QUIETLY IN BED WITH EYES CLOSED. RESPS ARE EVEN AND UNLABORED. NO ACUTE DISTRESS NOTED.
--- NOTE | 2018-09-27 00:50 | NUR ---
THE PATIENT APPEARS TO BE SLEEPING COMFORTABLY WITH BED IN LOW POSITION, SIDERAILS X2 AND CALL LIGHT WITHIN REACH.
--- NOTE | 2018-09-27 05:18 | NUR ---
PT ASSISTED TO THE BATHROOM WITH SBA. NO FURTHER NEEDS VOICED.
[2018-09-27 06:47] LABS: BASOPHILS 0.6 % (0-2); HEMATOCRIT 30.7 % (36.0-48.0); LYMPHOCYTES 25.2 % (15-50); MCH 29.2 pg (26.0-34.0); MCHC 32.6 g/dL (31.0-37.0); MCV 89.8 fL (80.0-100.0); MONOCYTES 12.9 % (2-11); NEUTROPHILS 55.3 % (40-80); PLATELET COUNT 113 10x3/uL (130-400); RBC 3.42 10x6/uL (4.00-5.40); RDW 18.7 % (11.5-14.5)
[2018-09-27 06:53] LABS: WBC 3.3 10x3/uL (4.8-10.8)
[2018-09-27 07:17] LABS: ANION GAP 9.5 mmol/L (8-16); CALCIUM 8.6 mg/dL (8.5-10.1); CREATININE - SERUM 0.8 mg/dL (0.6-1.3); POTASSIUM - SERUM 3.5 mmol/L (3.5-5.1)
--- NOTE | 2018-09-27 07:39 | NUR ---
ALERT AND ORIENTED. NO C/O PAIN. RESP EVEN AND UNLABORED. CL IN REACH.
[2018-09-27 08:14] VITALS: BP 124/47
--- NOTE | 2018-09-27 13:18 | NUR ---
SITTING IN CHAIR. NO C/O PAIN. CL IN REACH.
--- NOTE | 2018-09-27 14:48 | NUR ---
SHOWER GIVEN PER TECH AT THIS TIME.
--- NOTE | 2018-09-27 16:36 | NUR ---
NO CHANGE IN ASSESSMENT. RESP EVEN AND UNLABORED. CL IN REACH.
--- NOTE | 2018-09-27 19:17 | NUR ---
PT NOTED SITTING AT THE FOOT OF HER BED WITH BED ALARM RINGING. SHE STATED, "I WISH YOU WOULD PUT THAT WC WHERE I COULD REACH IT." I INFORMED HER THAT WE PUT IT OUT OF REACH ON PURPOSE, BECAUSE WE DID NOT WANT HER GETTING UP BY HERSELF, BUT TO CALL ALWAYS FOR ASSISTANCE. PT KEPT SAYING THE SAME THING OVER AND OVER, AND I KEPT TRYING TO EXPLAIN THIS TO HER, BUT SHE WAS NOT COMING AROUND TO MY WAY OF THINKING. I ASSISTED HER TO THE BATHROOM WITH SBA. SHE VOIDED WITHOUT DIFFICULTY, AND WAS ASSISTED BACK TO BED. PT WANTED HER WC LEFT BY THE BEDSIDE. I PUT IT IN THE BATHROOM WHERE IT WAS WHEN I CAME IN. PT WAS ANGRY, AND STATED, "I JUST DONT UNDERSTAND WHY YOU ARE SO STUBBORN HEADED. JUST LISTEN TO ME." I EXPLAINED THAT I NEEDED HER TO CALL ME FOR ASSISTANCE, AND I WOULD COME RIGHT AWAY, AND BRING HER THE CHAIR AT ANY TIME. SHE DID AGREE TO THIS. SR'S ARE UP X 3 IN BED. CALL LIGHT AND BEDSIDE TABLE ARE WITHIN EASY REACH.
[2018-09-27 21:27] VITALS: BP 130/54
--- NOTE | 2018-09-27 22:00 | NUR ---
PT ASSISTED TO THE BATHROOM FREQUENTLY. SHE VOIDS WITHOUT DIFFICULY, AND DENIES ANY PAIN OR DISCOMFORT. TRANSFERS WITH SBA.
--- NOTE | 2018-09-28 01:34 | NUR ---
PT ASSISTED TO THE BATHROOM WITH SBA. NO FURTHER NEEDS VOICED.
--- NOTE | 2018-09-28 03:49 | NUR ---
RESTING IN BED WITH RESPIRATIONS UNLABORED. NO DISTRESS NOTED. CALLS PRN TO GO TO BATHROOM.
--- NOTE | 2018-09-28 06:04 | NUR ---
PT UP AND DRESSED AND SITTING IN WC AT THIS TIME.
[2018-09-28 07:15] LABS: HEMATOCRIT 32.3 % (36.0-48.0); HEMOGLOBIN 10.5 g/dL (12-16); MCH 29.6 pg (26.0-34.0); MCHC 32.5 g/dL (31.0-37.0); MEAN PLATELET VOLUME 10.2 fL (7.4-10.4); PLATELET COUNT 120 10x3/uL (130-400); RBC 3.55 10x6/uL (4.00-5.40); RDW 18.7 % (11.5-14.5); WBC 2.6 10x3/uL (4.8-10.8)
[2018-09-28 07:38] LABS: ANION GAP 9.6 mmol/L (8-16); CALCIUM 8.9 mg/dL (8.5-10.1); CARBON DIOXIDE 31.1 mmol/L (21.0-32.0); CREATININE - SERUM 0.9 mg/dL (0.6-1.3); POTASSIUM - SERUM 3.7 mmol/L (3.5-5.1)
[2018-09-28 08:31] VITALS: BP 127/59
[2018-09-28 08:32] LABS: ANISOCYTOSIS OCC; EOSINOPHILS 6 % (0-7); LYMPHOCYTES 29 % (15-50); MONOCYTES 10 % (2-11); NEUTROPHILS 55 % (40-80); PLATELET ESTIMATE NORMAL
[2018-09-28 09:32] VITALS: Ht 170.2 cm; Wt 75.3 kg
--- NOTE | 2018-09-28 11:04 | NUR ---
PATIENT ALERT BUT CONFUSED THIS MORNING. NO COMPLAINTS OF PAIN OR DISCOMFORT. ATE 50% OF BREAKFAST. TOLERATED THERAPY WELL THIS MORNING. RESTING QUIETLY IN ROOM AT THIS TIME. CALL LIGHT WITHIN REACH. WILL CONTINUE TO MONITOR.
--- NOTE | 2018-09-28 16:01 | NUR ---
PATIENT WAS ASSISTED UP TO BATHROOM. WHILE UP IN BATHROOM NOTICED THAT PATIENTS PESERRY RING CAME OUT. DR. HUYNH'S OFFICE CALLED AND NOTIFIED OF THIS. AWAITING TO HEAR BACK FROM HIM AT THIS TIME.
--- NOTE | 2018-09-28 16:27 | NUR ---
DR. HUYNH'S OFFICE CALLED AND SAID THAT DR. HUYNH WILL BE HERE TOMORROW MORNING 09-29-18 TO REPLACE PESSERY RING. PATIENT INFORMED.
--- NOTE | 2018-09-28 19:45 | NUR ---
PT IS RESTING IN BED WITH EYES OPEN. ALERT AND ORIENTED X 3. PT ASSISTED TO REPOSITION IN BED, AND BED ALARM REPOSITIONED SO IT WOULD NOT RING UNECASSARILY. PT DENIES ACUTE PAIN OR DISCOMFORT AT THIS TIME. NO NEEDS VOICED. SR'S ARE UP X 2 IN BED. CALL LIGHT AND BEDSIDE TABLE ARE WITHIN EASY REACH.
[2018-09-28 20:00] VITALS: BP 98/46
--- NOTE | 2018-09-28 21:52 | NUR ---
ANSWERED CALL LIGHT, PT WANTED REPOSITIONED IN BED, BAG LINER CAME IN, WE PULLED HER UP IN BED AND ADJUSTED COVERS,PAD AND BED ALARM, FLUIDS AND CALL LIGHT WITHIN REACH
--- NOTE | 2018-09-29 01:00 | NUR ---
PT IS RESTING IN BED WITH EYES CLOSED.
--- NOTE | 2018-09-29 04:59 | NUR ---
PT RESTING QUIETLY IN BED WITH EYES CLOSED. NO ACUTE DISTRESS NOTED.
--- NOTE | 2018-09-29 07:36 | NUR ---
EYES CLOSED, RESP EVEN AND UNLABORED. NO DISTRESS NOTED.
[2018-09-29 08:20] VITALS: BP 121/57
--- NOTE | 2018-09-29 12:35 | NUR ---
SITTING IN CHAIR. PARTICIPATED IN THERAPY THIS AM. HAD SHOWER WITH THERAPY TODAY.
--- NOTE | 2018-09-29 18:40 | NUR ---
NO CHANGE IN ASSESSMENT. CL IN REACH. NO C/O PAIN.
--- NOTE | 2018-09-29 19:55 | NUR ---
PATIENT RECEIVED SITTING UP IN BED. PATIENT REFUSED TO FILL OUT MENU, JUST BREAKFAST. PATIENT VITAL SIGNS & ASSESSMENT DONE. PATIENT HAD NO C/O PAIN OR DISTRESS. PATIENT BED LOW. ALARM ON. CALL LIGHT WITHIN REACH. WILL CONTINUE TO MONITOR.
[2018-09-29 20:00] VITALS: BP 105/50
--- NOTE | 2018-09-30 03:09 | NUR ---
PT ASLEEP NO NEEDS NOTED FLUIDS AND CALL LIGHT WITHIN REACH
--- NOTE | 2018-09-30 04:18 | NUR ---
PATIENT EYES CLOSED. RESPIRATIONS 18 & EVEN. BED LOW. ALARM ON. CALL LIGHT WITHIN REACH. WILL CONTINUE TO MONITOR.
--- NOTE | 2018-09-30 07:27 | NUR ---
RESTING QUIETLY WO C/O PAIN. RESP EVEN AND UNLABORED. CL IN REACH.
[2018-09-30 07:33] LABS: BASOPHILS 1.2 % (0-2); EOSINOPHILS 10.8 % (0-7); HEMATOCRIT 27.7 % (36.0-48.0); LYMPHOCYTES 27.3 % (15-50); MCH 29.3 pg (26.0-34.0); MCHC 32.5 g/dL (31.0-37.0); MCV 90.2 fL (80.0-100.0); MEAN PLATELET VOLUME 9.9 fL (7.4-10.4); MONOCYTES 13.7 % (2-11); PLATELET COUNT 101 10x3/uL (130-400); RBC 3.07 10x6/uL (4.00-5.40); RDW 18.9 % (11.5-14.5); WBC 2.5 10x3/uL (4.8-10.8)
[2018-09-30 07:50] LABS: CALCIUM 8.5 mg/dL (8.5-10.1); CARBON DIOXIDE 27.8 mmol/L (21.0-32.0); CREATININE - SERUM 1.1 mg/dL (0.6-1.3); POTASSIUM - SERUM 3.8 mmol/L (3.5-5.1)
[2018-09-30 08:00] VITALS: BP 102/42
--- NOTE | 2018-09-30 09:49 | NUR ---
Pt admitted to Rehab with the following skin issues: Left sacrum: 1cm x 1cm stage 2 pressure injury Right sacrum: 1cm x 1cm stage 2 pressure injury Blanchable redness covers entire sacral region. Right ross: 1cm x 1cm nonhealing ulcer Left ross: 2cm x 2cm nonhealing ulcer Left #2 toe: 1cm x 1cm nonhealing ulcer Right #4 toe: 0.5cm x 0.5cm healing ulcer Recommendations: -mepilex to sacral wounds -Turn/reposition every 2 hours while in bed -Calcium alginate applied to bilateral leg ulcers daily -Mepilex for protection of left #2 and right #4 toes -Air overlay mattress Wound care continues to monitor.
--- NOTE | 2018-09-30 11:57 | NUR ---
NO C/O PAIN. SITTING IN CHAIR IN ROOM. SON AT BS.
--- NOTE | 2018-09-30 16:53 | NUR ---
CARE TEAM MEETING: PATIENTS SON ATTENDED MEETING. TENATIVE DISCHARGE DATE IS 10/08/18. WILL CONTINUE TO FOLLOW WITH PATIENT.
--- NOTE | 2018-09-30 16:57 | NUR ---
NO CHANGE IN ASSESSMENT. DR OWEN TO SEE PATIENT IN AM TO REPLACE BLADDER RING. NO C/O PAIN.
--- NOTE | 2018-09-30 19:58 | NUR ---
THE PATIENT WAS LYING IN BED WHEN STAFF ENTERED HER ROOM. BED IS IN THE LOW POSITION WITH SIDERAILS X2 AND CALL LIGHT WITHIN REACH. PATIENT DEMONSTRATES APPROPRIATE USE OF A CALL LIGHT. THE PATIENT APPEARS COMFORTABLE WITH NO QUESTIONS OR CONCERNS AT THIS TIME.
[2018-09-30 21:55] VITALS: BP 96/32
--- NOTE | 2018-10-01 02:18 | NUR ---
THE PATIENT IS AWAKE AND TALKING TO STAFF. SHE APPEARS COMFORTABLE AND HAS NO QUESTIONS OR CONCERNS AT THIS TIME.
[2018-10-01 08:00] VITALS: BP 116/42
--- NOTE | 2018-10-01 18:23 | NUR ---
PT RESTING IN BED WITH EYES OPEN CALL LIGHT IN REACH WILL MONITER
--- NOTE | 2018-10-01 20:00 | NUR ---
AWAKE AND ALERT. RESTING IN BED WITH RESPIRATIONS UNLABORED. NO NEEDS VOICED NO DISTRESS NOTED.
[2018-10-01 21:20] VITALS: BP 98/37
--- NOTE | 2018-10-02 01:45 | NUR ---
ASSISTED TO BATHROOM AND BACK TO BED. NO DISTRESS NOTED.
--- NOTE | 2018-10-02 05:40 | NUR ---
QUIET HOURS. RESTING IN BED WITH NO DISTRESS NOTED. CALL LIGHT IN REACH.
[2018-10-02 07:51] LABS: ANION GAP 10.9 mmol/L (8-16); CALCIUM 8.4 mg/dL (8.5-10.1); CARBON DIOXIDE 29.5 mmol/L (21.0-32.0); CREATININE - SERUM 1.2 mg/dL (0.6-1.3); POTASSIUM - SERUM 4.4 mmol/L (3.5-5.1)
[2018-10-02 08:00] VITALS: BP 108/38
--- NOTE | 2018-10-02 08:15 | NUR ---
PT RESTING IN BED WITH EYES OPEN CALL LIGHT IN REACH NO PROBLEMS WILL MONITER
[2018-10-02 10:51] LABS: BASOPHILS 1.2 % (0-2); EOSINOPHILS 10.2 % (0-7); HEMATOCRIT 26.5 % (36.0-48.0); HEMOGLOBIN 8.6 g/dL (12-16); LYMPHOCYTES 36.1 % (15-50); MCH 29.2 pg (26.0-34.0); MCHC 32.5 g/dL (31.0-37.0); MCV 89.8 fL (80.0-100.0); MEAN PLATELET VOLUME 10.1 fL (7.4-10.4); MONOCYTES 13.1 % (2-11); NEUTROPHILS 39.4 % (40-80); RBC 2.95 10x6/uL (4.00-5.40); RDW 19.1 % (11.5-14.5); WBC 2.4 10x3/uL (4.8-10.8)
[2018-10-02 11:05] LABS: PLATELET COUNT 128 10x3/uL (130-400)
--- NOTE | 2018-10-02 11:54 | NUR ---
NUTRITION F/U PT VERY [place]. PLEASANT. STATED SHE WAS EATING GOOD WITH GOOD APPETITE. INTAKE RECORD SHOWS 100% BREAKFAST. WILL CONTINUE TO PROVIDE DIET, HONOR FOOD PREFERENCES. RD FOLLOWING
--- NOTE | 2018-10-02 19:07 | NUR ---
PATIENT IS RESTING IN HER BED. STATES SHE IS READY FOR BED. WHEN ASKED WHAT SHE NEEDS TO GET "READY FOR BED", SHE STATES SHE NEEDS TO GO TO BED. NO OTHER NEEDS EXPRESSED. BED IS DOWN LOW WITH SIDE RAILS UP X2 AND CALL LIGHT IS IN REACH.
[2018-10-02 20:22] VITALS: BP 91/34
--- NOTE | 2018-10-02 22:16 | NUR ---
PT ASSISTED TO THE BATHROOM WITH MIN ASSIST. SMALL FORMED BM NOTED. NO FURTHER NEEDS VOICED.
--- NOTE | 2018-10-03 00:26 | NUR ---
RESTING IN BED WITH EYES CLOSED.
--- NOTE | 2018-10-03 05:53 | NUR ---
PT ASSISTED TO THE BATHROOM WITH SBA. MEDIUM BM NOTED.
[2018-10-03 08:00] VITALS: BP 90/35
--- NOTE | 2018-10-03 08:00 | NUR ---
UP OOB IN WC.BREAKFAST GIVEN.CL IN REACH.
--- NOTE | 2018-10-03 12:00 | NUR ---
EATING LUNCH.VISITING WITH SON.
--- NOTE | 2018-10-03 19:28 | NUR ---
GREETED PATIENT AND INTRODUCED MYSELF HER NURSE. BROUGHT PATIENT A CUP OF COFFEE PER REQUEST. PATIENT DENIES ANY FURTHER NEEDS AT THIS TIME. CALL LIGHT IN REACH.
[2018-10-03 19:58] VITALS: BP 116/46
--- NOTE | 2018-10-03 21:29 | NUR ---
PATIENT CLEANED OF INCONTINENT URINE. COMPLETE LINEN CHANGE. PATIENT REPOSITIONED FOR COMFORT. CALL LIGHT IN REACH.
--- NOTE | 2018-10-03 23:14 | NUR ---
PATIENT UP OUT OF BED AND BROUGHT TO NURSING STATION IN WHEELCHAIR. PATIENT REFUSES TO GO TO BED AND TRY TO SLEEP AND IS KEEPING HER NEIGHBOR AWAKE.
--- NOTE | 2018-10-03 23:48 | NUR ---
PATIENT BACK TO BED AND REPOSITIONED FOR COMFORT. PATIENT IS ALERT BUT CONFUSED TO TIME, PLACE AND SITUATION. WCTM. CALL LIGHT IN REACH.
--- NOTE | 2018-10-04 01:03 | NUR ---
PATIENT LAYING IN BED WATCHING TV. DENIES ANY NEEDS AT THIS TIME. CALL LIGHT IN REACH.
--- NOTE | 2018-10-04 01:48 | NUR ---
ASSISTED PATIENT TO BATHROOM USING WHEELCHAIR. PATIENT BACK TO BED AND REPOSITIONED FOR COMFORT. CALL LIGHT IN REACH.
--- NOTE | 2018-10-04 03:03 | NUR ---
PATIENT DRIVE AWAY DRIVER LIGHT AND DEMANDING TO HAVE A PAIN PILL. I EXPLAINED TO PATIENT THAT I HAD GIVEN HER PAIN MEDICATION PRESCRIBED AT 2100. PATIENT STATED " I DEMAND THAT I HAVE A PAIN PILL NOW." I EXPLAINED THAT THERE WAS NOTHING THAT I COULD DO BECAUSE I WAS FOLLOWING DRS. BERNARDO, BUT THAT I WOULD MAKE A NOTE FOR DR. TONG. CALL LIGHT IN REACH.
--- NOTE | 2018-10-04 03:42 | NUR ---
PATIENT PHOTOENGRAVER APPRENTICE LIGHT ONCE AGAIN DEMANDING HER OTHER HALF OF HER PAIN MEDICATION. I TOLD PATIENT ONCE AGAIN THAT I HAD MADE A NOTE FOR DR. TONG TO ADDRESS HER PAIN MEDICATION. CALL LIGHT IN REACH.
--- NOTE | 2018-10-04 04:31 | NUR ---
DRESSING REMOVED ON LEFT LOWER LEG AND WOUND CLEANED WITH SAFE CLENS. ALGINATE WOUND DRESSING APPLIED AND COVERED WITH MEPILEX BORDER. RIGHT LOWER LEG WOUND CLEANED WITH SAFE CLENS AND ALGINATE WOUND DRESSING APPLIED AND COVERED WITH MEPILEX BORDER. PATIENT TOLERATED PROCEDURE.
--- NOTE | 2018-10-04 04:59 | NUR ---
PATIENT ASLEEP WITH EYES CLOSED LAYING IN SUPINE POSITION. HOB AT 30 DEGREES. RESPIRATIONS EVEN. NO SIGNS OF DISTRESS. CALL LIGHT IN REACH
--- NOTE | 2018-10-04 06:48 | NUR ---
PATIENT SPRING MACHINE OPERATOR LIGHT. WENT TO PATIENTS ROOM AND ASSISTED PATIENT TO BATHROOM USING WHEELCHAIR. PATIENT HAD ALREADY WET HER BED AND BRIEFS. PATIENTS BED CHANGED AND BRIEFS CHANGED. PATIENT WHEELED BACK TO BED AND WHILE ATTEMPTING TO GET PATIENT BACK IN BED, PATIENT SCREAMED AT ME AND SLAPPED ME ON THE SIDE OF THE FACE. I REMINDED PATIENT TO PLEASE BE RESPECTFUL AND TO NOT SCREAM OR SLAP AT THE NURSES.
[2018-10-04 08:32] VITALS: BP 116/45
--- NOTE | 2018-10-04 12:42 | NUR ---
PATIENT CONFUSED AND SOMEWHAT ANXIOUS THIS MORNING. C/O OF SORE THROAT AND COUGH. PATIENT NOTED TO HAVE A DRY OCCASSIONAL COUGH. ATE 100% OF BREAKFAST. WAS FIELD SCOUT LIGHT OFTEN THIS MORNING. STATES THAT SHE WANTS TO GO HOME. RESTING QUIETLY AT THIS TIME. WILL CONTINUE TO MONITOR. CALL LIGHT WITHIN REACH.
--- NOTE | 2018-10-04 19:23 | NUR ---
PATIENT IS SITTING UP ON SIDE OF BED. BED IS DOWN LOW WITH SIDE RAILS UP X2. CL IS IN REACH.
[2018-10-04 20:18] VITALS: BP 98/50
--- NOTE | 2018-10-04 21:05 | NUR ---
DRESSING CHANGED FOR BILATERAL LOWER LEGS.
--- NOTE | 2018-10-05 00:15 | NUR ---
PT C/O CAN'T GO BACK TO SLEEP AND SIT UP IN BED. CALL LIGHT IN REACH.
--- NOTE | 2018-10-05 01:04 | NUR ---
REST QUIELTLY IN BED, CALL LIGHT IN REACH.
--- NOTE | 2018-10-05 05:16 | NUR ---
REST QUIELTY IN BED, CALL LIGHT IN REACH.
[2018-10-05 07:16] LABS: HEMATOCRIT 29.8 % (36.0-48.0); HEMOGLOBIN 9.5 g/dL (12-16); MCH 29.1 pg (26.0-34.0); MCHC 31.9 g/dL (31.0-37.0); MCV 91.4 fL (80.0-100.0); MEAN PLATELET VOLUME 9.8 fL (7.4-10.4); PLATELET COUNT 128 10x3/uL (130-400); RBC 3.26 10x6/uL (4.00-5.40); RDW 19.6 % (11.5-14.5)
[2018-10-05 07:27] LABS: ANION GAP 13.2 mmol/L (8-16); CALCIUM 8.8 mg/dL (8.5-10.1); CREATININE - SERUM 1.2 mg/dL (0.6-1.3); POTASSIUM - SERUM 4.2 mmol/L (3.5-5.1)
[2018-10-05 07:46] LABS: WBC 1.8 10x3/uL (4.8-10.8)
[2018-10-05 08:02] VITALS: BP 114/49
[2018-10-05 09:47] LABS: BASOPHILS 1 % (0-2); EOSINOPHILS 3 % (0-7); LYMPHOCYTES 30 % (15-50); MONOCYTES 10 % (2-11); NEUTROPHILS 56 % (40-80); PLATELET ESTIMATE NORMAL
[2018-10-05 09:48] LABS: ANISOCYTOSIS OCC; ROULEAUX OCC
--- NOTE | 2018-10-05 10:46 | NUR ---
PATIENT CONFUSED AND DEMANDING TO GO HOME THIS MORNING. TOLD HER THAT SHE COULD NOT GO HOME WITHOUT A DOCTORS ORDER. STATED THAT SHE WAS NOT GOING TO DO ANYTHING TODAY BECAUSE SHE WAS GOING HOME. ATE 40% OF BREAKFAST. INITIALLY REFUSED TO DO THERAPY BUT THEN AGREED TO DO IT. DR. TONG IN TO SEE PATIENT THIS MORNING. ORDERED A FLU SWAB SINCE PATIENT HAS A COUGH AND IS COMPLAINING OF A SORE THROAT. PATIENT GOWNED AND MASKED TO DO THERAPY. FLU SWAB OBTAINED AND SENT TO LAB. AWAITING RESULTS. PATIENT WAS MEDICATED THIS MORNING WITH A PRN XANAX DUE TO INCREASED ANXIETY AND UNABLE TO RELAX.PATIENT HAS NOT SLEPT WELL IN 2 DAYS. PATIENT IS IN BED RESTING AT THIS TIME. WILL CONTINUE TO MONITOR. CALL LIGHT WTIHIN REACH.
--- NOTE | 2018-10-05 12:17 | NUR ---
PATIENT TESTED POSITIVE FOR INFLUENZA TYPE A. SON INFORMED. DR. TONG INFORMED. WILL BE MOVED TO [facility]. PATIENT HAS NO COMPLAINTS AT THIS TIME.
--- NOTE | 2018-10-05 12:18 | NUR ---
PATIENT PCP IS AND SHE IS A CLIENT OF [facility] IN [place]. WILL CONTINUE TO FOLLOW WITH PATIENT AND WILL ASSIST WITH NEEDS. DISCHARGE PLANS ARE FOR PATIENT TO RETURN HOME WITH HER SON.
--- NOTE | 2018-10-05 17:34 | NUR ---
PATIENT MOVED TO ROOM 1108 AT 14:00 THIS AFTERNOON. HAS BEEN ASLEEP ALL AFTERNOON. SON CALLED AND UPDATED WAS GIVEN ON PATIENTS CONDITION.
[2018-10-05 20:00] VITALS: BP 125/44
--- NOTE | 2018-10-05 20:05 | NUR ---
MOVED FROM 1114 TO 1108B TESTED POSITIVE FOR TYPE A FLU, ON DROPLET PRECAUTIONS, PT [place], IN BED, RUNNING TEMP, GIVING TYLENOL WITH MEDS, FLUIDS AND CALL LIGHT WITHIN REACH
--- NOTE | 2018-10-05 20:12 | NUR ---
PT RUNNING TEMP, GIVING TYLENOL WITH MED PASS, FLUIDS AND CALL LIGHT WITHIN REACH, [place] BAND, TESTED POSITIVE TODAY FOR TYPE A FLU, TAMIFLU ON ORDER
--- NOTE | 2018-10-06 01:09 | NUR ---
PT ASLEEP, INCONTINENT THIS SHIFT, FLUIDS AND CALL LIGHT WITHIN REACH
[2018-10-06 07:51] LABS: ANION GAP 10.9 mmol/L (8-16); CALCIUM 8.5 mg/dL (8.5-10.1); CARBON DIOXIDE 29.9 mmol/L (21.0-32.0); CREATININE - SERUM 1.1 mg/dL (0.6-1.3); POTASSIUM - SERUM 3.8 mmol/L (3.5-5.1)
[2018-10-06 08:00] VITALS: BP 121/64
--- NOTE | 2018-10-06 09:33 | NUR ---
Nutrition Follow Up: Chart reviewed. Pt is in isolation for Flu Type A. Interview deferred at this time. Pt with excellent po intake prior to dx of flu. Diet: Regular; Ensure BID PO Intake: 49% meal avg BM: 10/05/18 Labs reviewed Meds noted including Lasix Rec continue current diet, supplement regimen. RD following.
--- NOTE | 2018-10-06 10:50 | NUR ---
ALERT AND ORIENTED. SITTING IN WC. RESP EVEN AND UNLABORED. CL IN REACH. NO C/O PAIN.
--- NOTE | 2018-10-06 16:50 | NUR ---
PT SITTING UP IN BED. CALL LIGHT IN REACH. PT DENIES NEEDS OR PAIN. BED IN LOW. SIDE RAILS X2. RESP EVEN AND UNLABORED. PT DOES HAVE PRODUCTIVE COUGH. WILL CONTINUE TO MONITOR
--- NOTE | 2018-10-06 19:22 | NUR ---
AWAKE AND ALERT. RESPIRATIONS UNLABORED. NO DISTRESS NOTED. DROPLET PRECAUTIONS IN PLACE.
[2018-10-06 19:57] VITALS: BP 119/51
--- NOTE | 2018-10-07 02:51 | NUR ---
RESTING IN BED WITH NO CHANGE IN CONDITION NOTED. RESPIRATIONS UNLABORED.
[2018-10-07 07:30] LABS: BASOPHILS 0.7 % (0-2); EOSINOPHILS 1.4 % (0-7); HEMATOCRIT 30.9 % (36.0-48.0); HEMOGLOBIN 9.8 g/dL (12-16); LYMPHOCYTES 35.7 % (15-50); MCH 28.9 pg (26.0-34.0); MCHC 31.7 g/dL (31.0-37.0); MCV 91.2 fL (80.0-100.0); MEAN PLATELET VOLUME 9.7 fL (7.4-10.4); MONOCYTES 13.7 % (2-11); NEUTROPHILS 48.5 % (40-80); PLATELET COUNT 119 10x3/uL (130-400); RBC 3.39 10x6/uL (4.00-5.40); RDW 19.4 % (11.5-14.5)
[2018-10-07 08:00] VITALS: BP 106/58
[2018-10-07 08:00] LABS: WBC 2.9 10x3/uL (4.8-10.8)
--- NOTE | 2018-10-07 19:43 | NUR ---
AWAKE AND ALERT. RESTING IN BED. RESPIRATIONS UNLABORED. REMAINS IN DROPLET ISOLATION. NO DISTRESS NOTED.
[2018-10-07 21:19] VITALS: BP 94/37
--- NOTE | 2018-10-08 02:06 | NUR ---
NOTED PATIENT WAS IN WHEELCHAIR. I ENTERED ROOM AND REMINDED PATIENT TO ALWAYS CLALL FOR ASSISTANCE BEFORE GETTING OUT OF BED. SHE YELLED AND SAID "I TURNED THE LIGHT ON!" I JUST REPLIED "WELL IT ISNT ON RIGHT NOW" PATIENT YELLED AGAIN SAYING "I DONT CARE IF YOU BELIEVE ME, IM NOT LYING" I INFORMED HER I DIDNT SAY I DIONT BELIEVE HER, JUST THAT THE CALL LIGHT WAS NOT ON AT THIS TIME. I ALSO TOLD HER ONCE SHE WAS FINISHED IN THE BATHROOM I WOULD CHECK HER CALL LIGHT TO SEE IF IT WAS FUNCTIONING PROPERLY. SHE AGAIN YELLED AND SAID SEND RD IN HERE SHE WILL BELIEVE ME. I TOLD HER I BELIEVED HER, I WAS JUST SAYING THE CALL LIGHT WASNT ON AT THIS MOMENT AND THAT I WOULD CHECK IT. I ASSISTED HER BACK TO BED. I CHECKED CALL LIGHT AND IT WAS FUNCTIONING FINE. SHE CALLED RD WILLS TO ROOM AND TOLD HER THAT I CALLED HER A LIAR. RD SHOWED HER THE CALL LIGHT WAS WORKING. NOW RESTING IN BED. WILL MONITOR.
--- NOTE | 2018-10-08 04:48 | NUR ---
RESTLESS HOURS. SLEPT IN SHORT INTERVALS. NO DISTRESS NOTED. WOUND CARE DONE ON BLE'S.
[2018-10-08 08:14] VITALS: BP 111/49
--- NOTE | 2018-10-08 13:33 | NUR ---
PATIENT DISCHARGING HOME TODAY WITH FAMILY. [facility] WILL PROVIDE THERAPY AT HOME. NO NEW DME NEEDED AT THIS TIME. DR. RICO 10/16/18 @ 10:00, DR. HUYNH/CELESTINO LOZOYA 10/20/18 @ 10:20. PATIENT CHOICE FORM FOR HOME HEALTH AND [facility] FORMS SIGNED, COPY GIVEN TO FAMILY AND FILED IN CHART. DSICHARGE INSTRUCTIONS WITH [employer] FAXED TO PCP AND TO HOME HEALTH.
--- NOTE | 2018-10-09 17:01 | RHP ---
PATIENT: JOANIE ALMODOVAR MEDICAL RECORD: [id number] ACCOUNT: [id number] LOCATION:[facility] : 36 ADMISSION DATE: 09/26/18 REHABILITATION HISTORY AND PHYSICAL EXAMINATION POST ADMISSION PHYSICIAN EXAMINATION DATE OF ADMISSION: 09/26/2018 ADMITTING DIAGNOSES: Debility secondary to venous stasis ulcers of the lower extremities. HISTORY OF PRESENT ILLNESS: The patient is an 78-year-old female patient who was admitted to the rehab with debility secondary to venous stasis ulcers. The patient is followed by Dr. Robbins, was a direct admit to the acute hospital. She has functional quadriplegia, weakness, dementia, and bilateral lower extremity edema. She got a medical history of hypertension. She also has a prolapsed uterus, was consulted by FASHION DIRECTOR for pessary care. Dr. Flanagan saw her and removed the Gellhorn pessary with some difficulty and placed a #0 donut, recommend weekly removal and cleaning twice weekly with Trimosan. She was also seen by Dr. Smith for psych consult. He said that she does have dementia but no behavior problems or psychosis. No thoughts of harming herself or others. During her acute stay, she was found to have bibasilar atelectasis. She was noted to have decreased O2 sats below 90% at times and required supplemental O2. She requires wound care to follow as she has self-care deficits, impaired gait secondary extremity weakness. She needs DVT and GI prophylaxis. These are all barriers to her discharge home at this time. Prior to this admission she was moderately independent with her son and garden and she is currently max assist with ambulation and ADLs. She will require intensive therapy, 24-hour supervision by an RN and MD to manage her comorbidities in order for her to return home hopefully at her prior level of functioning or possibly even better. COMORBIDITIES: In this patient include bilateral lower extremity edema, uterine prolapse, venous insufficiency, stasis dermatitis, venous stasis ulcer, bibasilar atelectasis, functional quadriplegia, and dementia. PAST MEDICAL HISTORY: Significant for weakness. She got a history of hypertension and edema. Got a history of acid reflux, arthritis, menopause, and anxiety. PAST SURGICAL HISTORY: Includes her uterus repair. She has had dentures placed. ALLERGIES: No known drug allergies. CURRENT MEDICATIONS: Include Lovenox 40 mg subQ daily, Calmoseptine to apply b.i.d., potassium 20 mEq daily, polyethylene glycol 17 grams in 8 ounces of water daily, Protonix 40 mg daily, meloxicam 15 mg daily, furosemide 20 mg b.i.d. She is on doxazosin or Cardura 10 mg daily. She is on Mirapex 1 mg t.i.d., [place] 5/325 half a tablet p.o. at bedtime, atenolol 50 mg b.i.d. HABITS: No current alcohol or tobacco use. FAMILY HISTORY: Noncontributory. HISTORY AND PHYSICAL [id number] JOANIE ALMODOVAR SOCIAL HISTORY: The patient hopes to return back home. Once again, she lives in garden with her son. REVIEW OF SYSTEMS: GENERAL: Does complain of weakness and fatigue. HEENT: Denies cold, cough, or congestion. CARDIOVASCULAR: Denies chest pain. PHYSICAL EXAMINATION: VITAL SIGNS: Stable, afebrile. GENERAL: A well-developed female, in no acute distress upon exam. HEENT: Normocephalic and atraumatic. Mucosa moist. NECK: Supple. No lymphadenopathy. LUNGS: Clear at this time with no wheeze, rhonchi or rales. HEART: Regular rate and rhythm. No murmurs, rubs or gallops. ABDOMEN: Benign. EXTREMITIES: No clubbing, cyanosis. Does have some peripheral edema and noted to have venous stasis changes. NEUROLOGIC: She does have noted proximal muscle weakness. LABORATORY DATA: White count of 3.3, H&H of 10 and 31, and platelet count is noted to be 113. Sodium 135, potassium 3.5, BUN and creatinine of 18 and 0.8, and blood sugar is noted to be 90. ASSESSMENT: This is an 78-year-old female patient admitted to rehab with a working diagnosis of debility secondary to venous stasis ulcers. The patient has potential to make improvement. We instituted the following multidisciplinary therapies include but not limited to physical, occupational, respiratory, speech, nutritional services, prosthetics, and orthotics. Given her complex medical conditions and risk for more complications, rehabilitation services cannot be provided at a low level of care such as skilled nurse facility. PLAN: 1. Admit to [facility] for intensive inpatient therapy to include the following disciplines: A. Physical therapy to improve gait, all transfer skills, and bed mobility to a modified independent level. B. Occupational therapy to improve activities of daily living to a modified independent level. C. Case management to assist with discharge planning and placement options. D. Nutrition to assist with nutritional needs. E. Rehabilitation nursing to assist in monitoring the patient's underlying medical conditions, assist with any type of bowel or bladder management. 2. The patient's current medication and medical care will be continued. 3. The patient will be placed on standard fall precautions. 4. The patient's estimated length of stay is approximately 7-10 days. 5. Discuss this patient during care team staff meeting this week. TRANSINT:[id number] Voice Confirmation ID: [id number] DOCUMENT ID: [id number] SOFIE notes whether there has been none or any medical/functional HISTORY AND PHYSICAL [id number] JOANIE ALMODOVAR change since admission: - No change since pre-admission screen. SOFIE attests patient continues to be appropriate for IRF: - Continues to be appropriate. VALENTE TONG MD at 1701 CC: [id number] DICTATION DATE: 09/27/18 181 VICE PRESIDENT BIOSTATISTICS: 09/27/18 2229 DIS IN 10/08/18 [id number] [place] [address]
== END 2018-10-08 12:45 | disposition home health service (06) | DRG 947 ==
LOC: D.REHAB 19:00
PROVIDERS: ADMIT Emergency Medicine; ATTEND Emergency Medicine
DX: R53.81 Other malaise (principal); R53.2 Functional quadriplegia; J98.11 Atelectasis; I83.009 Varicose veins of unspecified lower extremity with ulcer of unspecified site; N81.4 Uterovaginal prolapse, unspecified; F03.90 Unspecified dementia, unspecified severity, without behavioral disturbance, psychotic disturbance, mood disturbance, and anxiety; I87.2 Venous insufficiency (chronic) (peripheral)

== ENCOUNTER 2018-12-10 09:31 | Inpatient (IN) | payer MEDICARE, OTHER ==
[~2018-12-10] VITALS: Ht 170.2 cm; Wt 75.8 kg
[2018-12-10 09:52] VITALS: BP 135/76; BMI 26.2
[2018-12-10] MEDS ORDERED: CELEXA10 MG PO (10:11)
[2018-12-10] MEDS ORDERED: VOLTAREN100 GM TOPICAL (10:12)
[2018-12-10] MEDS ORDERED: CALMOSEPTINE OI71 GM TOPICAL (10:13)
[2018-12-10 10:44] LABS: BASOPHILS 1.1 % (0-2); EOSINOPHILS 4.9 % (0-7); HEMOGLOBIN 10.9 g/dL (12-16); LYMPHOCYTES 28.6 % (15-50); MCH 29.1 pg (26.0-34.0); MCHC 32.1 g/dL (31.0-37.0); MCV 90.9 fL (80.0-100.0); MEAN PLATELET VOLUME 9.3 fL (7.4-10.4); MONOCYTES 12.9 % (2-11); NEUTROPHILS 52.5 % (40-80); PLATELET COUNT 120 10x3/uL (130-400); RBC 3.74 10x6/uL (4.00-5.40); RDW 17.7 % (11.5-14.5); WBC 3.7 10x3/uL (4.8-10.8)
[2018-12-10 11:01] LABS: ALBUMIN 3.1 g/dL (3.4-5.0); ALKALINE PHOSPHATASE 173 U/L (46-116); ALT (SGPT) 24 U/L (10-68); BILIRUBIN - TOTAL 1.27 mg/dL (0.2-1.3); CALC OSMOLALITY 274 mosm/kg (275-300); CARBON DIOXIDE 31.3 mmol/L (21.0-32.0); CHLORIDE - SERUM 102 mmol/L (98-107); CREATININE - SERUM 0.7 mg/dL (0.6-1.3); GLUCOSE 98 mg/dL (74-106); POTASSIUM - SERUM 3.4 mmol/L (3.5-5.1); PROTEIN - SERUM 7.7 g/dL (6.4-8.2); SODIUM 138 mmol/L (136-145); UREA NITROGEN 11 mg/dL (7-18); eGFR NON AFRICAN AMERICAN 85 mL/min (90-120)
[2018-12-10 13:26] VITALS: BP 122/74
--- NOTE | 2018-12-10 13:44 | NUR ---
I have reviewed this patient and I concur with the Shift Assessment completed by the Licensed Practical Nurse today this shift.
[2018-12-10 18:00] VITALS: BP 119/69
--- NOTE | 2018-12-10 19:45 | NUR ---
PT LYING IN BED RESTING WITHOUT DISTRESS. IV RIGHT WRIST INFUSING NS @ 50. RIGHT HEARING AID CAME OUT OF PT EAR AND LYING IN BED, MOVED TO SIDE TABLE. SWELLING AND REDNESS BILAT LOWER EXT. DRESSING OVER QUARTER SIZE SORE TO LEFT MATTHEW. BED LOWEST POSITION, SRX2, CL IN REACH. ZENON ON. WILL CONT TO MONITOR
[2018-12-10 20:00] VITALS: BP 110/46
[2018-12-11] VITALS: BP 104/54
[2018-12-11 03:58] LABS: APPEARANCE TURBID (CLEAR); BACTERIA FEW /hpf (NONE SEEN); BILIRUBIN NEGATIVE (NEGATIVE); COLOR YELLOW (YELLOW); EPITHELIAL CELLS NSEEN /hpf (0-5); GLUCOSE NEGATIVE (NEGATIVE); KETONE NEGATIVE (NEGATIVE); MUCUS >1+ /lpf (NONE SEEN); NITRITE NEGATIVE (NEGATIVE); PROTEIN NEGATIVE (NEGATIVE); RED CELLS - URINE 0-5 /hpf (0-5); SPECIFIC GRAVITY 1.005 (1.005-1.020); UROBILINOGEN NORMAL (NORMAL)
[2018-12-11 03:59] LABS: AMORPHOUS SEDIMENT >1+ /lpf (NONE SEEN); CALCIUM OXALATE CRYSTALS 0-5 /hpf (NONE SEEN)
[2018-12-11 04:00] VITALS: BP 121/58
[2018-12-11 04:00] LABS: TRIPLE PHOSPHATE CRYSTALS 25-50 /hpf (NONE SEEN)
[2018-12-11 06:08] LABS: HEMOGLOBIN 9.3 g/dL (12-16); MEAN PLATELET VOLUME 9.8 fL (7.4-10.4); RBC 3.21 10x6/uL (4.00-5.40)
[2018-12-11 06:11] LABS: MCV 93.5 fL (80.0-100.0); PLATELET COUNT 95 10x3/uL (130-400); WBC 2.2 10x3/uL (4.8-10.8)
[2018-12-11 06:35] LABS: ALBUMIN 2.7 g/dL (3.4-5.0); ALKALINE PHOSPHATASE 139 U/L (46-116); ALT (SGPT) 21 U/L (10-68); BILIRUBIN - TOTAL 0.92 mg/dL (0.2-1.3); CALC OSMOLALITY 283 mosm/kg (275-300); CALCIUM 8.9 mg/dL (8.5-10.1); CARBON DIOXIDE 30.3 mmol/L (21.0-32.0); CHLORIDE - SERUM 108 mmol/L (98-107); CREATININE - SERUM 0.7 mg/dL (0.6-1.3); GLUCOSE 91 mg/dL (74-106); POTASSIUM - SERUM 3.4 mmol/L (3.5-5.1); PROTEIN - SERUM 6.6 g/dL (6.4-8.2); SODIUM 142 mmol/L (136-145); eGFR NON AFRICAN AMERICAN 85 mL/min (90-120)
[2018-12-11 06:49] LABS: UREA NITROGEN 14 mg/dL (7-18)
--- NOTE | 2018-12-11 07:46 | NUR ---
AWAKE AND ALERT, ON ROOM AIR, EVEN UNLABORED BREATHING, SLOW TO RESPOND, DISORIENTED TO TIME AND SITUATION, RIGHT WRIST IV PATENT, INFUSING NS AT 50ML/HR. TAVAREZ CATHETER PRESENT, DENIES ANY CURRENT NEEDS OR DISCOMFORTS, BED LOWERED AND LOCKED, CALL LIGHT WITHIN REACH. CPOC
[2018-12-11 08:09] LABS: EOSINOPHILS 3 % (0-7); LYMPHOCYTES 36 % (15-50); MONOCYTES 12 % (2-11); NEUTROPHILS 48 % (40-80); PLATELET ESTIMATE DECREASED
--- NOTE | 2018-12-11 09:13 | NUR ---
SPOKE WITH DONNA, SON, CURIOUS ABOUT IF WE CAN GIVE MOTHER SOMETHING FOR HER ARTHRITIC PAIN, OF NOW NOTHING HAS BEEN PRESCRIBED, FAMILY/PT IS READY FOR REHAB IS SHE IS ABLE AND QUALIFIES. DONNA SAID THAT IF ANYTHING IS NEEDED FROM HIM OR ANY QUESTIONS TO PLEASE CALL HIM.
[2018-12-11 09:49] VITALS: BP 120/45
[2018-12-11 12:21] VITALS: Ht 170.2 cm; Wt 75.8 kg
[2018-12-11 14:38] VITALS: BP 118/77
--- NOTE | 2018-12-11 14:50 | NUR ---
APPLIED PLEXI BOOTS BILATERAL.
--- NOTE | 2018-12-11 15:44 | NUR ---
OT NOTE: PT COMPLETED COMPLETED TRANSFER AND BED MOB WITH MOD/MAX A. PT COMPLETED GROOMING WITH MIN A. THANK YOU, ADRIANNE PUTNAM
--- NOTE | 2018-12-11 16:50 | MORECARE ---
CASE MANAGEMENT DISCHARGE SUMMARY PATIENT: JOANIE BONILLA UNIT: [id number] ADM DATE: 12/10/18 AGE: 78 : 38 SEX: F ROOM/BED: D.2237 AUTHOR: SRAVANI WASHBURN PHYSICIAN: REFERRING PHYSICIAN: LISA RICO DO DATE OF SERVICE: 12/11/18 Discharge Plan Patient Name: JOANIE BONILLA [facility] [facility] 1940 Planned Disposition: [facility] Facility Anticipated Discharge Date: Discharge Date: Expected LOS: Initial Reviewer: [email or web address] Initial Review Date: 12/10/2018 Generated: 12/11/18 5:49 pm DCPIA - Discharge Planning Initial Assessment Updated by [email or web address]: Pam Echavarria on 12/11/18 4:47 pm * Is the patient Alert and Oriented? No * How many steps to enter\exit or inside your home? 1/0 * PCP Dr. iRco * Pharmacy [facility] in [place] * Preadmission Environment Home with Family * ADLs Total Dependent * Equipment Rolling Walker * Other Equipment Medical alert button * List name and contact numbers for known caregivers / representatives who currently or will assist patient after discharge: Cheng Bonilla - son - [phone] * Verbal permission to speak to the caregivers and representatives has been obtained from the patient. N/A * Community resources currently utilized Home Health * Please name any agencies selected above. [facility] in [place] * Additional services required to return to the preadmission environment? Yes * Can the patient safely return to the preadmission environment? No * Has this patient been hospitalized within the prior 30 days at any hospital? No External Providers External Provider: [facility] Next Contact Date: Service Request Date: Service Type: Resolution: Reviewer: Comments: Patient Name: JOANIE BONILLA Page [phone] at 1650 All edits/amendments must be made on the electronic document DICTATION DATE: 12/11/181648 MACHINE PRECISION ENGRAVER: HERNANDEZ 12/11/181648 RPT#: [id number] DC DATE: STATUS: ADM IN [facility] [address] [place] [address] END OF REPORT
--- NOTE | 2018-12-11 17:01 | NUR ---
APPLIED O2 LPM VIA NC, O2 STAYED AT 88% WILL RECHECK
[2018-12-11 18:02] VITALS: BP 95/45
--- NOTE | 2018-12-11 19:04 | NUR ---
AWAKE AND ALERT, TAVAREZ CATHETER PRESENT, ON ROOM AIR, STAYED IN RECLINER IN ROOM FOR 3 HOURS DURING SHIFT, IV TO RIGHT WRIST, PATENT, NS AT 50ML/HR, DENIES ANY CURRENT NEEDS OR DISCOMFORTS, BED LOWERED AND LOCKED, CALL LIGHT WITHIN REACH. CPOC
[2018-12-11 19:53] VITALS: BP 90/44
[2018-12-12] VITALS: BP 103/39
--- NOTE | 2018-12-12 03:37 | NUR ---
I have reviewed this patient and I concur with the Shift Assessment completed by the Licensed Practical Nurse today this shift.
[2018-12-12 04:00] VITALS: BP 148/71
[2018-12-12 06:02] LABS: BASOPHILS 0.5 % (0-2); EOSINOPHILS 2.6 % (0-7); HEMATOCRIT 34.3 % (36.0-48.0); HEMOGLOBIN 10.8 g/dL (12-16); IMMATURE GRANULOCYTES 0.3 % (0-5); LYMPHOCYTES 17.4 % (15-50); MCH 29.1 pg (26.0-34.0); MCHC 31.5 g/dL (31.0-37.0); MCV 92.5 fL (80.0-100.0); MEAN PLATELET VOLUME 10.2 fL (7.4-10.4); MONOCYTES 11.4 % (2-11); NEUTROPHILS 67.8 % (40-80); PLATELET COUNT 109 10x3/uL (130-400); RBC 3.71 10x6/uL (4.00-5.40); RDW 17.6 % (11.5-14.5); WBC 3.9 10x3/uL (4.8-10.8)
[2018-12-12 06:30] LABS: ALBUMIN 2.9 g/dL (3.4-5.0); ALKALINE PHOSPHATASE 146 U/L (46-116); BILIRUBIN - TOTAL 1.14 mg/dL (0.2-1.3); CALC OSMOLALITY 270 mosm/kg (275-300); CALCIUM 8.8 mg/dL (8.5-10.1); CARBON DIOXIDE 26.9 mmol/L (21.0-32.0); CHLORIDE - SERUM 100 mmol/L (98-107); CREATININE - SERUM 0.7 mg/dL (0.6-1.3); GLUCOSE 95 mg/dL (74-106); POTASSIUM - SERUM 3.4 mmol/L (3.5-5.1); PROTEIN - SERUM 7.5 g/dL (6.4-8.2); SODIUM 135 mmol/L (136-145); UREA NITROGEN 14 mg/dL (7-18); eGFR NON AFRICAN AMERICAN 85 mL/min (90-120)
[2018-12-12 06:32] LABS: ALT (SGPT) 14 U/L (10-68)
[2018-12-12 09:34] VITALS: BP 116/69
[2018-12-12 13:09] VITALS: BP 120/80
[2018-12-12 16:26] VITALS: BP 102/55
[2018-12-12 19:52] VITALS: BP 94/46
[2018-12-13] VITALS: BP 109/39
--- NOTE | 2018-12-13 01:31 | NUR ---
I have reviewed this patient and I concur with the Shift Assessment completed by the Licensed Practical Nurse today this shift.
[2018-12-13 04:00] VITALS: BP 104/49
[2018-12-13 05:41] LABS: BASOPHILS 0.7 % (0-2); EOSINOPHILS 3.6 % (0-7); HEMOGLOBIN 10.2 g/dL (12-16); IMMATURE GRANULOCYTES 0.3 % (0-5); LYMPHOCYTES 26.5 % (15-50); MCH 29.1 pg (26.0-34.0); MCHC 31.9 g/dL (31.0-37.0); MCV 91.2 fL (80.0-100.0); MEAN PLATELET VOLUME 9.3 fL (7.4-10.4); MONOCYTES 15.2 % (2-11); NEUTROPHILS 53.7 % (40-80); PLATELET COUNT 91 10x3/uL (130-400); RBC 3.51 10x6/uL (4.00-5.40); RDW 17.4 % (11.5-14.5)
[2018-12-13 06:20] LABS: ALBUMIN 2.6 g/dL (3.4-5.0); ALKALINE PHOSPHATASE 124 U/L (46-116); ALT (SGPT) 14 U/L (10-68); BILIRUBIN - TOTAL 1.05 mg/dL (0.2-1.3); CALC OSMOLALITY 271 mosm/kg (275-300); CALCIUM 8.5 mg/dL (8.5-10.1); CARBON DIOXIDE 29.3 mmol/L (21.0-32.0); CHLORIDE - SERUM 100 mmol/L (98-107); CREATININE - SERUM 0.7 mg/dL (0.6-1.3); GLUCOSE 83 mg/dL (74-106); POTASSIUM - SERUM 3.5 mmol/L (3.5-5.1); PROTEIN - SERUM 6.8 g/dL (6.4-8.2); SODIUM 136 mmol/L (136-145); UREA NITROGEN 16 mg/dL (7-18); eGFR NON AFRICAN AMERICAN 85 mL/min (90-120)
--- NOTE | 2018-12-13 08:11 | NUR ---
AWAKE AND ALERT, DISORIENTED TO TIME AND SITUATION, SITTING UP RIGHT IN RECLINER, WHEELS LOCKED, ON ROOM AIR, IV TO RIGHT WRIST PATENT, INFUSING NS AT 50ML/HR, STATED "IM LEAVING TODAY", EXPLAINED TO HER WE ARE WORKING ON GETTING HER SENT TO REHAB BUT IT WOULD PROBABLY BE TOMORROW. DENIES ANY NEEDS OR DISCOMFORTS, BED LOWERED AND LOCKED, CALL LIGHT WITHIN REACH. CPOC
[2018-12-13 09:03] VITALS: BP 123/49
[2018-12-13 12:40] VITALS: BP 101/49
--- NOTE | 2018-12-13 14:30 | NUR ---
AAOX4. ON ROOM AIR, RECIEVED REGULAR TRAY FOR LUNCH, DENIES ANY CURRENT DISCOMFORT OR PAIN TO ABD REGION. C/O ITCHING AROUND IV SITE, PULLED TAPE BACK AND INSPECT SKIN, NO REDNESS OR SKIN BREAKDOWN OBSERVED, RESECURED IV WITH SILK TAPE, DENIES ANY OTHER NEEDS OR DISCOMFORTS, BED LOWERED AND LOCKED, CALL LIGHT WITHIN REACH. CPOC
[2018-12-13 17:09] VITALS: BP 102/46
--- NOTE | 2018-12-13 17:12 | NUR ---
IV INFILTRATED TO RIGHT WRIST, DISCONTINUED IV, IV CATHETER TIP INTACT, RESITED IV TO RIGHT FOREARM, 20G, INFUSING NS AT 50ML/HR. DENIES ANY NEEDS OR DISCOMFORTS, BED LOWERED AND LOCKED, CALL LIGHT WITHIN REACH. CPOC
--- NOTE | 2018-12-13 19:30 | NUR ---
ALERT WITH TIMES OF CONFUSION. HARD OF HEARING. DENIES PAIN. FALL PRECAUTIONS IN PLACE. 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 BILATERAL LOWER EXTREMETIES PRESENT WITH REDNESS. DRESSING TO THE LEFT MATTHEW THAT IS ADHERED TO SKIN. 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 REPOSITIONED PATIENT FROM BACK TO THE RIGHT SIDE. CALL LIGHT IN REACH.
[2018-12-13 20:00] VITALS: BP 88/32
--- NOTE | 2018-12-14 02:13 | NUR ---
I have reviewed this patient and I concur with the Shift Assessment completed by the Licensed Practical Nurse today this shift.
[2018-12-14 03:00] VITALS: BP 140/58
[2018-12-14 06:01] LABS: BASOPHILS 0.4 % (0-2); EOSINOPHILS 2.5 % (0-7); HEMATOCRIT 31.9 % (36.0-48.0); HEMOGLOBIN 10.3 g/dL (12-16); IMMATURE GRANULOCYTES 0.4 % (0-5); LYMPHOCYTES 21.3 % (15-50); MCH 28.9 pg (26.0-34.0); MCHC 32.3 g/dL (31.0-37.0); MCV 89.6 fL (80.0-100.0); MEAN PLATELET VOLUME 9.6 fL (7.4-10.4); MONOCYTES 16.2 % (2-11); NEUTROPHILS 59.2 % (40-80); PLATELET COUNT 89 10x3/uL (130-400); RBC 3.56 10x6/uL (4.00-5.40); RDW 17.1 % (11.5-14.5); WBC 2.8 10x3/uL (4.8-10.8)
[2018-12-14 06:27] LABS: ALBUMIN 2.6 g/dL (3.4-5.0); ALKALINE PHOSPHATASE 121 U/L (46-116); ALT (SGPT) 13 U/L (10-68); BILIRUBIN - TOTAL 0.91 mg/dL (0.2-1.3); CALC OSMOLALITY 274 mosm/kg (275-300); CALCIUM 8.5 mg/dL (8.5-10.1); CARBON DIOXIDE 29.9 mmol/L (21.0-32.0); CHLORIDE - SERUM 100 mmol/L (98-107); CREATININE - SERUM 0.7 mg/dL (0.6-1.3); GLUCOSE 99 mg/dL (74-106); PROTEIN - SERUM 6.9 g/dL (6.4-8.2); SODIUM 137 mmol/L (136-145); UREA NITROGEN 14 mg/dL (7-18); eGFR NON AFRICAN AMERICAN 85 mL/min (90-120)
[2018-12-14 06:41] LABS: POTASSIUM - SERUM 2.8 mmol/L (3.5-5.1)
[2018-12-14 08:46] VITALS: BP 110/49
[2018-12-14 12:30] VITALS: BP 109/61
--- NOTE | 2018-12-14 14:55 | NUR ---
Nutrition follow up: Cardiac diet with 50,100% intake of meals today Snacks in room Pt is sleeping now Noted: Hopes to d/c soon RD following
[2018-12-14 15:51] LABS: % SATURATION 10 % (15-55); IRON 28 ug/dl (35-150); TOTAL IRON BIND CAPACITY 265 ug/dl (260-445); UNSAT IRON BIND CAPACITY 237 ug/dl (150-375)
[2018-12-14 16:55] LABS: MAGNESIUM - SERUM 1.1 mg/dL (1.8-2.4); POTASSIUM - SERUM 3.4 mmol/L (3.5-5.1)
--- NOTE | 2018-12-14 17:12 | NUR ---
OT NOTE: PT COMPLETED SITTING BALANCE WITH MIN A. PT COMPLETED TRANSFER WITH MOD/MAX A. PT COMPLETED SELF FEEDING WITH SPV. PT COMPLETED FACE WASHING WITH MIN A. THANK YOU, ADRIANNE PUTNAM
[2018-12-14 21:31] VITALS: BP 94/40
[2018-12-15 00:18] VITALS: BP 101/54
[2018-12-15 05:03] VITALS: BP 124/34
[2018-12-15 05:50] LABS: BASOPHILS 0.7 % (0-2); EOSINOPHILS 2.7 % (0-7); HEMATOCRIT 30.6 % (36.0-48.0); HEMOGLOBIN 10.1 g/dL (12-16); IMMATURE GRANULOCYTES 0.3 % (0-5); LYMPHOCYTES 29.6 % (15-50); MCH 29.7 pg (26.0-34.0); MEAN PLATELET VOLUME 10.3 fL (7.4-10.4); MONOCYTES 17.8 % (2-11); NEUTROPHILS 48.9 % (40-80); RDW 17.2 % (11.5-14.5)
[2018-12-15 05:51] LABS: PLATELET COUNT 113 10x3/uL (130-400)
--- NOTE | 2018-12-15 05:58 | NUR ---
I have reviewed this patient and I concur with the Shift Assessment completed by the Licensed Practical Nurse today this shift.
[2018-12-15 06:35] LABS: ALBUMIN 2.4 g/dL (3.4-5.0); ALKALINE PHOSPHATASE 115 U/L (46-116); ALT (SGPT) 13 U/L (10-68); BILIRUBIN - TOTAL 0.88 mg/dL (0.2-1.3); CALC OSMOLALITY 273 mosm/kg (275-300); CALCIUM 8.1 mg/dL (8.5-10.1); CARBON DIOXIDE 31.9 mmol/L (21.0-32.0); CHLORIDE - SERUM 100 mmol/L (98-107); CREATININE - SERUM 0.7 mg/dL (0.6-1.3); GLUCOSE 89 mg/dL (74-106); POTASSIUM - SERUM 3.4 mmol/L (3.5-5.1); PROTEIN - SERUM 6.7 g/dL (6.4-8.2); SODIUM 137 mmol/L (136-145); UREA NITROGEN 16 mg/dL (7-18); eGFR NON AFRICAN AMERICAN 85 mL/min (90-120)
[2018-12-15 08:43] VITALS: BP 102/39
[2018-12-15 10:14] LABS: FOLATE (FOLIC ACID) - SERUM 3.8 ng/mL (>3.0)
--- NOTE | 2018-12-15 11:27 | NUR ---
Pt has a wound on her left ross that measures 7cm x 2cm. There is no depth. She also has a stage 2 pressure injury on her coccyx measuring 1cm x 0.5cm. Recommendations: Ross: cleanse daily and apply betadine ointment/cover with bordered gauze Coccyx: zinc oxide paste Wound care will monitor.
[2018-12-15 14:40] VITALS: BP 106/54
--- NOTE | 2018-12-15 15:43 | MORECARE ---
CASE MANAGEMENT DISCHARGE SUMMARY PATIENT: JOANIE BONILLA UNIT: [id number] ADM DATE: 12/10/18 AGE: 78 : 38 SEX: F ROOM/BED: D.2237 AUTHOR: WUDOC PHYSICIAN: REFERRING PHYSICIAN: LISA RICO DO DATE OF SERVICE: 12/15/18 Discharge Plan Patient Name: JOANIE BONILLA Facility: [facility]:[place] : 1940 Planned Disposition: [facility] Facility Anticipated Discharge Date: Discharge Date: Expected LOS: Initial Reviewer: [email or web address] Initial Review Date: 12/10/2018 Generated: 12/15/18 4:43 pm Comments DCP- Discharge Planning Updated by [email or web address]: Pam Echavarria on 12/15/18 2:[address] Spoke with Carline at [facility]. She states her secondary did lapse on 10/26 and the family would need to call to get it reinstated. I called Cheng and informed him to call the insurance at to reinstate her secondary insurance. Policy number is [id number]. He states he will call them now. Carline states she will call in am for possible acceptance. CM will continue to follow and assist with discharge planning/needs. DCP- Discharge Planning Updated by [email or web address]: Pam Echavarria on 12/11/18 3:[address] Patient Name: JOANIE BONILLA Admission Status: Urgent Accout number: [id number] Admission Date: 12-10-2018 : 1940 Admission Diagnosis: Attending: LISA RICO Current LOS: 1 Anticipated DC Date: Planned Disposition: [facility] Facility Primary Insurance: MEDICARE A & B Discharge Planning Comments: Patient is sleeping and not disturbed. I called her son, Cheng, to discuss discharge planning. She lives with her son, Cheng. He states she is completely dependent on him. He states she has [facility] from [place] seeing her. He states he would like a referral to [facility]. I asked if she had a supplement and he states she has Old Surity. I have asked him to bring a copy of that card. I called Ro with [facility] and clinical faxed. I faxed an old face sheet with the supplement on there. CM will continue to follow and assist with discharge planning/needs. Wind Turbine Controls Engineer: Pam Echavarria DCPIA - Discharge Planning Initial Assessment Updated by [id number]: Pam Echavarria on 12/11/18 4:47 pm * Is the patient Alert and Oriented? No * How many steps to enter\exit or inside your home? 1/0 * PCP Dr. Rico * Pharmacy [facility] in [place] * Preadmission Environment Home with Family * ADLs Total Dependent * Equipment Rolling Walker * Other Equipment Medical alert button * List name and contact numbers for known caregivers / representatives who currently or will assist patient after discharge: Cheng Bonilla - son - [phone] * Verbal permission to speak to the caregivers and representatives has been obtained from the patient. N/A * Community resources currently utilized Home Health * Please name any agencies selected above. [facility] in [place] * Additional services required to return to the preadmission environment? Yes * Can the patient safely return to the preadmission environment? No * Has this patient been hospitalized within the prior 30 days at any hospital? No Coverage Notice Reviewer: [id number] - Pam Echavarria Notice Issued Date-Time: 12/11/2018 16:52 Notice Type: Patient Choice Letter Notice Delivered To: Family Member Relationship to Patient: Son Belt Dresser Name: Cheng Bonilla Delivery Method: PHONE - Phone Ysabel Days: Prior Verbal Notification: Recipient Understood Notice: Yes Recipient Signature: Rolly Rec Note Co-signed by Attending: Coverage Notice Comment: MARTHA for [facility] Last DP export: 12/11/18 3:49 p Patient Name: JOANIE BONILLA Page [phone] at 1543 All edits/amendments must be made on the electronic document DICTATION DATE: 12/15/18 154 WOODS RIDER: HERNANDEZ 12/15/18 1543 RPT#: [id number] DC DATE: STATUS: ADM IN [facility] [address] [place] [address] END OF REPORT
[2018-12-15 16:55] VITALS: BP 91/30
[2018-12-15 20:49] VITALS: BP 110/45
[2018-12-16 01:20] VITALS: BP 124/50
--- NOTE | 2018-12-16 02:50 | NUR ---
I have reviewed this patient and I concur with the Shift Assessment completed by the Licensed Practical Nurse today this shift.
[2018-12-16 04:47] VITALS: BP 109/47
--- NOTE | 2018-12-16 07:54 | NUR ---
PT SITTING UP IN BED. PLESANTLY CONFUSED. ALERT TO SELF ONLY. [place]. NO S/S OF ACUTE DISTRESS. CL IN PLACE.
[2018-12-16 07:56] LABS: HEMATOCRIT 29.2 % (36.0-48.0); HEMOGLOBIN 9.2 g/dL (12-16); MCH 28.8 pg (26.0-34.0); MCHC 31.5 g/dL (31.0-37.0); MCV 91.3 fL (80.0-100.0); MEAN PLATELET VOLUME 10.3 fL (7.4-10.4); PLATELET COUNT 112 10x3/uL (130-400); WBC 2.3 10x3/uL (4.8-10.8)
[2018-12-16 08:21] LABS: ALBUMIN 2.4 g/dL (3.4-5.0); ALKALINE PHOSPHATASE 123 U/L (46-116); BILIRUBIN - TOTAL 0.69 mg/dL (0.2-1.3); CALC OSMOLALITY 273 mosm/kg (275-300); CALCIUM 8.4 mg/dL (8.5-10.1); CARBON DIOXIDE 32.6 mmol/L (21.0-32.0); CHLORIDE - SERUM 100 mmol/L (98-107); CREATININE - SERUM 0.7 mg/dL (0.6-1.3); GLUCOSE 104 mg/dL (74-106); POTASSIUM - SERUM 3.5 mmol/L (3.5-5.1); PROTEIN - SERUM 6.5 g/dL (6.4-8.2); SODIUM 136 mmol/L (136-145); UREA NITROGEN 17 mg/dL (7-18); eGFR NON AFRICAN AMERICAN 85 mL/min (90-120)
[2018-12-16 08:22] LABS: ALT (SGPT) 17 U/L (10-68); MAGNESIUM - SERUM 1.8 mg/dL (1.8-2.4)
[2018-12-16 08:36] VITALS: BP 115/43
[2018-12-16 09:38] LABS: EOSINOPHILS 1 % (0-7); LYMPHOCYTES 39 % (15-50); MONOCYTES 9 % (2-11); NEUTROPHILS 50 % (40-80); PLATELET ESTIMATE DECREASED
--- NOTE | 2018-12-16 12:40 | MORECARE ---
CASE MANAGEMENT DISCHARGE SUMMARY PATIENT: JOANIE BONILLA UNIT: [id number] ADM DATE: 12/10/18 AGE: 78 : 38 SEX: F ROOM/BED: D.2237 AUTHOR: WU,DOC PHYSICIAN: REFERRING PHYSICIAN: LISA RICO DO DATE OF SERVICE: 12/16/18 Discharge Plan Patient Name: JOANIE BONILLA Facility: [facility]:[place] : 1940 Planned Disposition: [facility] Facility Anticipated Discharge Date: Discharge Date: Expected LOS: Initial Reviewer: [email or web address] Initial Review Date: 12/10/2018 Generated: 12/16/18 1:39 pm Comments DCP- Discharge Planning Updated by [email or web address]: Pam Echavarria on 12/16/18 11:[address] Patient Name: JOANIE BONILLA Encounter No: [id number] : 1940 Primary Insurance: MEDICARE A & B Anticipated DC Date: Planned Disposition: [facility] External Planned Provider: : DCP follow-up note: Received a call from [facility] that they will accept the patient today. They will call me back with a pickling operator time. I notified Sylvia Brizuela APN. Son is in the room and he is informed. Clinical faxed to [facility]. Patient and family in agreement with discharge plan. No changes to plan. Case management will follow and assist as needed. Pam Echavarria DCP- Discharge Planning Updated by [email or web address]: Pam Echavarria on 12/15/18 2:[address] Spoke with Carline at [facility]. She states her secondary did lapse on 10/26 and the family would need to call to get it reinstated. I called Cheng and informed him to call the insurance at to reinstate her secondary insurance. Policy number is [id number]. He states he will call them now. Carline states she will call in am for possible acceptance. CM will continue to follow and assist with discharge planning/needs. DCP- Discharge Planning Updated by [email or web address]: Pam Echavarria on 12/11/18 3:[address] Patient Name: JOANIE BONILLA Admission Status: Urgent Accout number: [id number] Admission Date: 12-10-2018 : 1940 Admission Diagnosis: Attending: LISA RICO Current LOS: 1 Anticipated DC Date: Planned Disposition: [facility] Facility Primary Insurance: MEDICARE A & B Discharge Planning Comments: Patient is sleeping and not disturbed. I called her son, Cheng, to discuss discharge planning. She lives with her son, Cheng. He states she is completely dependent on him. He states she has [facility] from [place] seeing her. He states he would like a referral to [facility]. I asked if she had a supplement and he states she has Old Surity. I have asked him to bring a copy of that card. I called Ro with [facility] and clinical faxed. I faxed an old face sheet with the supplement on there. CM will continue to follow and assist with discharge planning/needs. Job Placement Officer: Pam Echavarria DCPIA - Discharge Planning Initial Assessment Updated by [email or web address]: Pam Echavarria on 12/11/18 4:47 pm * Is the patient Alert and Oriented? No * How many steps to enter\exit or inside your home? 1/0 * PCP Dr. Rico * Pharmacy [facility] in [place] * Preadmission Environment Home with Family * ADLs Total Dependent * Equipment Rolling Walker * Other Equipment Medical alert button * List name and contact numbers for known caregivers / representatives who currently or will assist patient after discharge: Cheng Bonilla - son - [phone] * Verbal permission to speak to the caregivers and representatives has been obtained from the patient. N/A * Community resources currently utilized Home Health * Please name any agencies selected above. [facility] in [place] * Additional services required to return to the preadmission environment? Yes * Can the patient safely return to the preadmission environment? No * Has this patient been hospitalized within the prior 30 days at any hospital? No Coverage Notice Reviewer: [email or web address] Karrie Echavarria Notice Issued Date-Time: 12/11/2018 16:52 Notice Type: Patient Choice Letter Notice Delivered To: Family Member Relationship to Patient: Son Core Blower Operator Name: Cheng Bonilla Delivery Method: PHONE - Phone Ysabel Days: Prior Verbal Notification: Recipient Understood Notice: Yes Recipient Signature: Med Rec Note Co-signed by Attending: Coverage Notice Comment: MARTHA for [facility] Reviewer: [email or web address] Karrie Echavarria Notice Issued Date-Time: 12/16/2018 12:29 Notice Type: IM Discharge Notice Notice Delivered To: Family Member Relationship to Patient: Son Core Blower Operator Name: Cheng Bonilla Delivery Method: HAND - Hand Delivered Ysabel Days: Prior Verbal Notification: Recipient Understood Notice: Yes Recipient Signature: Yes Med Rec Note Co-signed by Attending: Coverage Notice Comment: IMM explained, signed by son per request, given, copy placed in MR Last DP export: 12/15/18 2:43 p Patient Name: JOANIE BONILLA Page [phone] at 1240 All edits/amendments must be made on the electronic document DICTATION DATE: 12/16/18 1239 CAN STERILIZER: HERNANDEZ 12/16/18 1239 RPT#: [id number] DC DATE: STATUS: ADM IN [facility] [address] [place] [address] END OF REPORT
--- NOTE | 2018-12-16 13:11 | NUR ---
IV DC WITH TIP INTACT. CALLED [facility] AND SPOKE WITH SUMMER BOB FOR REPORT.
[2018-12-16 13:58] VITALS: BP 109/46
--- NOTE | 2018-12-16 15:05 | NUR ---
DC INSTRUCTIONS AND EDUCATION DONE WITH SON. [facility] TOOK PT VIA WC. ALL BELONGINGS SENT WITH SON. NO S/S OF ACUTE DISTRESS.
--- NOTE | 2018-12-16 17:03 | NUR ---
OT NOTE: PT COMPLETED BED MOB TASKS WITH DOMITILA Lyman THANK YOU, ADRIANNE PUTNAM
== END 2018-12-16 15:08 | DRG 698 ==
LOC: D.MS 09:31
PROVIDERS: Emergency Medicine; Internal Medicine Nephrology; ADMIT Family Medicine; ATTEND Family Medicine
DX: T83.511A Infection and inflammatory reaction due to indwelling urethral catheter, initial encounter (principal); G93.41 Metabolic encephalopathy; R53.2 Functional quadriplegia; N39.0 Urinary tract infection, site not specified; E86.0 Dehydration; R41.0 Disorientation, unspecified; I10 Essential (primary) hypertension; M19.90 Unspecified osteoarthritis, unspecified site; F41.9 Anxiety disorder, unspecified; L89.152 Pressure ulcer of sacral region, stage 2